=== PATIENT | male | born 1950 | race Caucasian/White ===

== ENCOUNTER 2023-06-26 13:03 | Outpatient (RCR) | payer OTHER, SELFPAY | END 2023-06-26 23:59 | disposition home or self-care (01) | LOC: RPT 13:03 | PROVIDERS: ATTENDING PHYSICIAN Family Medicine | DX: M21.371 Foot drop, right foot (principal); M25.511 Pain in right shoulder; M25.512 Pain in left shoulder; Z73.6 Limitation of activities due to disability | CPT/HCPCS: 97110; 97140; 97162; 97535 ==

== ENCOUNTER → 2023-07-24 13:11 | Outpatient (REF) | payer OTHER, SELFPAY | LOC: HWEVLT 13:11 | PROVIDERS: ATTENDING PHYSICIAN Radiology Diagnostic Radiology | DX: I83.893 Varicose veins of bilateral lower extremities with other complications (principal) | CPT/HCPCS: 93970 ==

== ENCOUNTER 2023-07-26 12:16 | Outpatient (RCR) | payer OTHER, SELFPAY | END 2023-07-26 23:59 | disposition home or self-care (01) | LOC: RPT 12:16 | PROVIDERS: ATTENDING PHYSICIAN Family Medicine | DX: M21.371 Foot drop, right foot (principal); M25.511 Pain in right shoulder; M25.512 Pain in left shoulder; Z73.6 Limitation of activities due to disability | CPT/HCPCS: 97010; 97110; 97112; 97140; 97530 ==

== ENCOUNTER 2023-08-27 14:00 | Outpatient (RCR) | payer OTHER, SELFPAY | END 2023-08-27 23:59 | disposition home or self-care (01) | LOC: RPT 14:00 | PROVIDERS: ATTENDING PHYSICIAN Family Medicine | DX: M21.371 Foot drop, right foot (principal); M25.511 Pain in right shoulder; M25.512 Pain in left shoulder; Z73.6 Limitation of activities due to disability | CPT/HCPCS: 97110; 97112; 97116; 97530; 97535 ==

== ENCOUNTER 2023-09-26 10:01 | Outpatient (RCR) | payer OTHER, SELFPAY | END 2023-09-26 23:59 | disposition home or self-care (01) | LOC: RPT 10:01 | PROVIDERS: ATTENDING PHYSICIAN Family Medicine | DX: M21.371 Foot drop, right foot (principal); M25.511 Pain in right shoulder; M25.512 Pain in left shoulder; Z73.6 Limitation of activities due to disability | CPT/HCPCS: 97010; 97110; 97112; 97140; 97530; 97535 ==

== ENCOUNTER → 2023-11-05 11:46 | Outpatient (REF) | payer OTHER, SELFPAY | LOC: RAD 11:46 | PROVIDERS: ATTENDING PHYSICIAN Family Medicine | DX: M25.511 Pain in right shoulder (principal); G89.29 Other chronic pain; M25.512 Pain in left shoulder; M54.2 Cervicalgia | CPT/HCPCS: 72040 ==

== ENCOUNTER → 2023-11-20 10:58 | Outpatient (REF) | payer OTHER, SELFPAY | LOC: RAD 10:58 | PROVIDERS: ATTENDING PHYSICIAN Family Medicine | DX: R93.89 Abnormal findings on diagnostic imaging of other specified body structures (principal) | CPT/HCPCS: 71260; Q9967 ==

== ENCOUNTER → 2024-06-17 11:14 | Outpatient (REF) | payer OTHER, SELFPAY | LOC: RAD 11:14 | PROVIDERS: ATTENDING PHYSICIAN Family Medicine | DX: Z95.0 Presence of cardiac pacemaker (principal) | CPT/HCPCS: 71046 ==

== ENCOUNTER → 2024-06-27 14:46 | Outpatient (REF) | payer OTHER, SELFPAY | LOC: RCS 14:46 | PROVIDERS: ATTENDING PHYSICIAN Nuclear Medicine Nuclear Cardiology; FAMILY PHYSICIAN Family Medicine | DX: I44.30 Unspecified atrioventricular block (principal); Z95.0 Presence of cardiac pacemaker; I35.1 Nonrheumatic aortic (valve) insufficiency | CPT/HCPCS: 93306 ==

== ENCOUNTER → 2024-07-22 13:50 | Outpatient (REF) | payer OTHER, SELFPAY | LOC: RAD 13:50 | PROVIDERS: ATTENDING PHYSICIAN Registered Nurse | DX: M25.552 Pain in left hip (principal) | CPT/HCPCS: 73502 ==

== ENCOUNTER → 2024-07-24 13:36 | Outpatient (REF) | payer OTHER, SELFPAY | LOC: MRI 13:36 | PROVIDERS: ATTENDING PHYSICIAN Nurse Practitioner Adult Health | DX: G57.91 Unspecified mononeuropathy of right lower limb (principal); R20.0 Anesthesia of skin; R26.89 Other abnormalities of gait and mobility | CPT/HCPCS: 70030; 70553; 76014; 76015; A9575 ==

== ENCOUNTER 2024-07-25 16:20 | Inpatient (IN) | payer OTHER, SELFPAY ==
[2024-07-25] VITALS (7 sets, daily range): BP systolic 110–158; BP diastolic 54–82; BMI 25.1; BMI 24.4
[2024-07-25 13:20] LABS: % Eosinophils 2.6 % (0-6); % Immature Granulocytes 0.2 % (0-0.5); % Lymphocytes 15.9 % (20.5-51.1); % Monocytes 6.3 % (1.7-9.3); Absolute Basophils 0.1 10^3/uL (0-0.2); Absolute Eosinophils 0.2 10^3/uL (0-0.7); Absolute Lymphocytes 0.9 10^3/uL (1.2-3.4); Absolute Monocytes 0.4 10^3/uL (0.1-0.6); Absolute Neutrophils 4.3 10^3/uL (1.4-6.5); Hematocrit 41.1 % (39.0-52.0); Hemoglobin 13.8 g/dL (13.0-18.0); Mean Corp Hgb Conc. 33.6 g/dL (33.0-37.0); Mean Corpuscular Hgb 32.3 pg (27.0-31.0); Mean Corpuscular Volume 96.3 fL (80.0-94.0); Mean Platelet Volume 9.4 fL (7.4-10.4); Nucleated Red Blood Cells % 0 % (-); Platelet Count 168 10^3/uL (130-400); Red Blood Cell Count 4.27 10^6/uL (4.70-6.10); Red Cell Dist. Width 12.6 % (11.5-14.5); White Blood Cell Count 5.7 10^3/uL (4.8-10.8)
[2024-07-25 14:07] LABS: ALT (SGPT) 23 U/L (0-50); AST (SGOT) 35 U/L (17-59); Albumin 4.3 g/dl (3.5-5.0); Alkaline Phosphatase 74 U/L (38-126); Blood Urea Nitrogen 23 mg/dl (9-20); Calcium 9.6 mg/dl (8.4-10.2); Carbon Dioxide 26 mmol/L (22-30); Chloride 105 mmol/L (98-107); Glucose 98 mg/dl (70-99); Potassium 4.7 mmol/L (3.5-5.1); Sodium 141 mmol/L (135-145); Total Bilirubin 0.7 mg/dl (0.2-1.3); eGFR > 60.00
--- NOTE | 2024-07-25 14:57 | EDRN ---
Diamond Balderas PA in room w/ pt at this time.
--- NOTE | 2024-07-25 15:12 | CON.NEURO ---
Consultation
Order
Date of Consultation: 07/25/24
Requesting Provider: Laura Pollard CRNP
Reason for Consult: Stroke
Neurology Consultation Note.
HPI: This is a 74-year-old RH man who was referred to [facility] on 07/25/2024 after discovery acute infarcts on brain MRI. Patient states that brain MRI was initially requested due to his daughter's Chiari I malformation. No reports
of dysarthria, diplopia, change in chronic intermittent chronic dysphagia to solids,dysphonia or imbalance.
Mr. Olmstead reports difficulty swallowing solids for the past couple of months.
The patient has had gradual in onset progressive right foot weakness at least over the last 15 years as well as progressive proximal arm weakness for at least 22 years.
He does have chronic hand numbness (all the digits) as well.
According to Ms. Olmstead the patient has had progressive cognitive decline over the last 2 years. No reports of neck pain, recent falls.
The patient was not on aspirin prior to the presentation.
ER VS: 137/69, 62, afebrile pain
PDMP: No recently prescribed medication
Labs: Normal glucose�WBCs, platelets
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
PMH: IGT, DLP, moderate R ICA stenosis (2017) hypothyroidism, vitamin D deficiency, vitiligo
PSH: PPM, right cataract surgery, tonsillectomy,
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
FH: Mother at 69 from ovarian cancer, father at 64 from ruptured brain aneurysm, son at 47 head parkinsonism
All: Penicillin
ROS: Constitutional: Negative. Negative for chills, fever
HENT: Positive for hearing impairment
Eyes: Negative. Negative for photophobia, pain and visual disturbance.
Respiratory: Negative for cough, choking and shortness of breath.
Cardiovascular: Negative for chest pain, palpitations and leg swelling.
Gastrointestinal: Intermittent dysphagia to solids
Endocrine: Negative. Negative for cold intolerance.
Musculoskeletal: Positive for chronic limited range of motion's and bilateral shoulders
Skin: Negative for rash.
Allergic/Immunologic: Negative. Negative for immunocompromised state.
Neurological: Positive for chronic right foot weakness, imbalance, bilateral arm weakness, hand numbness (all digits)
Psychiatric/Behavioral: Positive for cognitive changes
General: Well developed. In no acute distress.
Cardio: Regular rate and rhythm without murmur. Extremities are without cyanosis or edema.
Neuro:
Mental Status: Alert, oriented to person, place, and date. Mildly paired attention and delayed recall. Follows complex requests across the midline. Comprehension, naming, and repetition intact.
Cranial Nerves: Pupils are equally round and reactive to light. EOMs full. Visual smith full to confrontation. No ptosis. No nystagmus. V1-V3 intact to light touch and pinprick bilaterally, symmetric. Face symmetric. Impaired hearing AU.
The palate elevated well. SCMs and traps 5/5. Tongue midline. No dysarthria. Mild dysphonia
Motor: BL APB, supraspinatus, infraspinatus, trapezius, deltoids, biceps atrophy. Strength 5/5 throughout except for bilateral shoulder adduction�abduction, elbow flexion and extension 2�3 out of 5 right dorsiflexion�0 out of 5, left hip scar
flexion�4 out of 5 no clonus.
Reflexes: 0 throughout the upper extremities and knees. 0/2 in AJs. Plantar responses flexor bilaterally.
Sensory: Absent vibration and proprioception at the toes. Vibration at the ankles
Coordination: No dysmetria or tremor.
Gait: deferred
Bilateral pes cavus and hammertoes
Assessment and Plan:
I. 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
II. 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
III. Chronic encephalopathy
IV. Chiari I malformation
-Fall and aspiration precautions
-Dysphagia evaluation
-Start DAPT for 3 weeks followed by monotherapy with aspirin 81 mg once a day
-Please check lipid panel, hemoglobin A1c
-TTE
-CTA head and neck
-PT
-OP NCS/EMG, CMT panel
-Polyneuropathy blood work
-OP neuropsychological evaluation
-May consider amyloid brain PET scan
I personally reviewed all radiology and labs along with past medical records pertinent to current medical problems. Total time spent in patient care is 60 minutes.
Thank you for allowing us to participate in the care of this patient. We will continue to follow. Please do not hesitate to contact us with any questions or concerns.
Subjective/Objective
Subjective Data
Date of Service: July 25, 2024
Objective Data
Vital Signs
Temp Pulse Resp BP Pulse Ox
36.7 C 62 16 137/69 98
07/25/24 13:00 07/25/24 13:00 07/25/24 13:00 07/25/24 13:00 07/25/24 13:00
Lab Results
07/25/24 13:09
07/25/24 13:09
Sodium 141 mmol/L (135-145) 07/25/24 13:09
Potassium 4.7 mmol/L (3.5-5.1) 07/25/24 13:09
BUN 23 mg/dl (9-20) H 07/25/24 13:09
Glucose 98 mg/dl (70-99) 07/25/24 13:09
Calcium 9.6 mg/dl (8.4-10.2) 07/25/24 13:09
Patient Allergies
Penicillins Allergy (Verified 07/25/24 13:04)
Unknown
Medications
-
Home Medications
�Medication �Instructions �Recorded
Immune C 2 tab PO DAILY 05/22/22
aspirin 81 mg capsule 81 mg PO DAILY 05/22/22
levothyroxine 175 mcg tablet 175 mcg PO MOTUWETHFRSA 05/22/22
meloxicam 15 mg tablet 15 mg PO QPM 05/22/22
Vital Signs and Labs
-
Vital Signs and Labs:
Vital Signs
Temp Pulse Resp BP Pulse Ox
36.7 C 59 23 139/74 97
07/25/24 13:00 07/25/24 16:15 07/25/24 16:15 07/25/24 16:00 07/25/24 15:45
Lab Results
07/25/24 13:09
07/25/24 13:09
PT 14.8 Sec (11.4-14.6) H 07/25/24 15:27
INR 1.12 07/25/24 15:27
APTT 30.9 Sec (23.4-35.0) 07/25/24 15:27
Sodium 141 mmol/L (135-145) 07/25/24 13:09
Potassium 4.7 mmol/L (3.5-5.1) 07/25/24 13:09
BUN 23 mg/dl (9-20) H 07/25/24 13:09
Glucose 98 mg/dl (70-99) 07/25/24 13:09
Calcium 9.6 mg/dl (8.4-10.2) 07/25/24 13:09
LDL Cholesterol, Calc Cancelled 07/25/24 15:04
Medications
-
Medications:
Generic Name Dose Route Start Last Admin
Trade Name Freq PRN Reason Stop Dose Admin
Acetaminophen 650 mg 07/25/24 17:02
Acetaminophen 650 Mg Rectal Suppository RECTAL 08/22/24 17:01
Q4HPRN PRN
MCDERMOTT, mild pain, or temp >100.4F
Acetaminophen 650 mg 07/25/24 17:02
Acetaminophen 325 Mg Tablet PO 08/22/24 17:01
Q4HPRN PRN
MCDERMOTT, mild pain, or temp >100.4F
Aspirin 81 mg 07/26/24 08:00
Aspirin 81 Mg Chewable Tablet PO 08/23/24 07:59
DAILY ZINA
Atorvastatin Calcium 40 mg 07/25/24 18:00
Atorvastatin (Lipitor) 40 Mg Tablet PO 08/22/24 17:59
QPM ZINA
Clopidogrel Bisulfate 75 mg 07/26/24 08:00
Clopidogrel 75 Mg Tablet PO 08/23/24 07:59
DAILY ZINA
Enoxaparin Sodium 40 mg 07/25/24 18:00
Enoxaparin Sodium 40 Mg/0.4 Ml Syringe SC 08/22/24 17:59
QPM ZINA
Levothyroxine Sodium 175 mcg 07/26/24 06:00
Levothyroxine 175 Mcg Tablet PO 08/23/24 05:59
MoTuWeThFrSa@0600 ZINA
Meloxicam 15 mg 07/25/24 22:00
Meloxicam (Mobic) 15 Mg Tablet PO 08/22/24 21:59
HS ZINA
Sodium Chloride 0 flush 07/25/24 18:00
Sodium Chloride 0.9% (Flush) Syringe IV 08/22/24 17:59
PER PROTOCOL ZINA
Home Medications
-
Home Medications
Immune C 1 tab PO DAILY 05/22/22
levothyroxine 175 mcg tablet (Synthroid) 175 mcg PO MOTUWETHFRSA 05/22/22
meloxicam 15 mg tablet 15 mg PO HS 05/22/22
Quietum Plus 1 tab PO DAILY 07/25/24
--- NOTE | 2024-07-25 15:20 | EDRN ---
[facility] pacemanker interrogated at this time and report came and given to Diamond HEALY at this time.
--- NOTE | 2024-07-25 15:28 | ED.GENMED ---
History of Present Illness
General
Chief Complaint: Gait Dysfunction
Source: patient and spouse
Time Seen by Provider: 07/25/24 14:51
History of Present Illness
History of Present Illness:
74-year-old male with past medical history of hypothyroidism status post pacemaker placed presenting to the emergency department from home after he had an outpatient MRI yesterday which showed acute CVA within the medulla and the right cerebellar
hemisphere. Patient got the MRI after patient's daughter was diagnosed with a Chiari I malformation, patient has dealt with chronic numbness to bilateral hands and feet over the last 4 years and daughter thought that this could be related to a
Chiari I malformation which is why they proceeded with the MRI as an outpatient although notes that patient has had gait imbalance that has been gradually worsening over the last few years but acutely worse over the last few weeks. also
notes that patient seems to have had word finding difficulty that seems to be more pronounced over the last week or so patient believes his numbness/tingling to his hands and feet are related to the COVID-vaccine he received 4 years ago. He is
otherwise denying any headaches, visual changes, new weakness or numbness, chest pain or shortness of breath, abdominal pain or any other concerns. Patient states that he was taken off his daily aspirin 6 months ago by cardiology.
Past History
Past History
ED Past Medical History: Arrthythmia and Hypothyroidism
ED Past Surgical History: Cardiac and Tonsilectomy
Social History
Tobacco: Non-smoker
Alcohol: None
Drug: None
Personal:
Living: with family
Review of Systems
Review of Systems
All Other Systems: ROS reviewed and negative except as documented in HPI and ROS
Phy Exam
Physical Exam
Physical Exam:
GENERAL: Alert , in no apparent distress
HEAD: NCAT
EYE: pupils equal and reactive, pupils 4mm b/l
NECK: Supple
ENT: o/p clr, mmm. tongue midline, no deviations/fasciculations
CARDIAC: Bradycardic rate and rhythm
LUNGS: Clear breath sounds bilaterally, no acute respiratory distress, no wheezes/rales/rhonchi
NEUROLOGICAL: Alert and oriented, moves all extremities but patient does report some subjective decrease sensation over the right anterior lower extremity compared to the left
SKIN: Warm and dry, skin intact.
MUSCULOSKELETAL: No edema, well perfused.
PSYCH: Normal and appropriate interaction.
Scores
NIH Stroke Score
Level of Consciousness: 0 - Alert
LOC Questions: 0-Answers both correctly
LOC Commands: 0-Performs both correctly
Best Horizontal Gaze: 0-Normal
Visual Arroyo: 0=Normal, no visual loss
Facial Palsy: 0=Normal, symmetrical
Motor - Right Arm: 0=No drift 10 seconds
Motor - Left Arm: 0=No drift 10 seconds
Motor - Right Le-No drift 5 seconds
Motor - Left Le-No drift 5 seconds
Limb Ataxia: 0-Absent
Sensation: 1-Mild loss
Best Language: 0-No aphasia
Dysarthria: 0-Normal
Extinction and Inattention: 0-No abnormality
Total Score:: 1
Thrombolytic Contraindication
Inclusion and Exclusion criteria reviewed: Yes
Reasons for NON-Tx with Thrombolytics ABSOLUTE Exclusions: Greater than 4.5 hrs from onset of sxs
Heart Failure Risk
Heart Failure Risk Score: Not Applicable
Heart Score for Chest Pain Patients
STEMI patient?: Not applicable
Withdrawal Assessment of Alcohol
Withdrawal Assessment Completed?: Not applicable
Course
Orders/Labs/Results
Orders:
Orders
07/25/24 13:09
Cardiovascular Evaluation Urgent
Comment: ADD ON
Complete Blood Count/With Diff Urgent
Comprehensive Metabolic Panel Urgent
Glycohemoglobin (HgbA1c) Urgent
07/25/24 15:04
Interrogate Pacemaker- Treatment ONCE
07/25/24 15:05
Electrocardiogram (*1) Urgent
Reason for Study: TIA/Stroke
EKG- Treatment ONCE
07/25/24 15:08
Aspirin 325 mg PO NOW STA
Clopidogrel Bisulfate [Plavix] 75 mg PO NOW STA
07/25/24 15:27
PTT Urgent
Prothrombin Time Urgent
07/25/24 15:49
Admit/Transfer Patient As Directed
Co-Sign Provider:
Level of Care: Inpatient admission
Assign to:: Telemetry
Physician / Group: trejo
Diagnosis: CVA
Reason for Telemetry: CVA/TIA
Date to Stop Telemetry: 07/28/24
Time to Stop Telemetry: 11:00
Reason for Hospitalization: cva
Expected length of stay greater than two midnights?: Yes
ELOS- Estimated Length of Stay in days: 3
I certify the patient meets the requirements for IP care: Yes
PRN Pain Medication Management As Directed
May give lesser potent ordered pain med per pt: Yes
preference::
Protocol:: Medication orders for pain may be administered in a
manner that supports deferring to patient preference
when the pt is:
- Requesting an ordered lesser potent pain medication.
Least to most potent pain medications are defined
as: acetaminophen < NSAID < tramadol < opioids
(morphine, oxycodone, hydromorphone).
- Requesting a lesser dose of the same medication IF
ORDERED.
- Requesting a less intrusive route of administration
if both routes are prescribed by the provider (PO <
IV).
07/25/24 15:50
Code Status As Directed
Resuscitation Status: Do not resuscitate
Reached after discussion with pt or family/Healthcare POA: Yes
DNR Bracelet Application ONCE
07/25/24 17:02
Acetaminophen [Tylenol/Feverall] 650 mg RECTAL Q4HPRN PRN
Acetaminophen [Tylenol] 650 mg PO Q4HPRN PRN
07/25/24 17:02
Echo 2D MMode Color/Doppler Routine
Reason for Study: weakness
Case Management Consult ONCE
Case Management Consult: Discharge Planning
Comment: stroke/tia
DIETARY IP CONSULT Routine
Reason for Consult: stroke/TIA
NEUROLOGY CONSULT Urgent
Consulting Provider: Phoebe Shahid
Was physician already notified: Yes
Pitch Worker Urgent
Activity As Directed
Activity Level: As Tolerated
NIH Stroke Scale As Directed
Directions: Per protocol
Comment: every shift and with any change in condition or mental status
Neurological Checks As Directed
Frequency: q4h
Additional Instructions:: q4h x 24h upon admission to the floor, then qshift & with any change in condition
and mental status
Patient Education As Directed
Type: Stroke education packet
Comment: provide to patient and family
Swallow Screening CVA/TIA ONLY As Directed
Comment: NPO until swallowing screening completed
If patient FAILS swallow screening:: NPO, Speech Therapy consult, Aspiration Precautions
If patient PASSES swallow screening, diet:: Cholesterol Lowering
Above diet order entered?: Yes- passed screening
Vital Signs As Directed
Frequency: Per unit guidelines
Ot Eval And Treat Routine
Pt Eval And Treat Routine
Activity Level: As Tolerated
Speech Therapy Eval & Treat Routine
DX Deep Vein Thrombosis Video Routine
07/25/24 18:00
Atorvastatin [Lipitor] 40 mg PO QPM
Enoxaparin Sodium [Lovenox] 40 mg SC QPM
07/25/24 22:00
Meloxicam [Mobic] 15 mg PO HS
07/26/24 06:00
Cardiovascular Evaluation IN AM
Levothyroxine [Synthroid] 175 mcg PO MoTuWeThFrSa@0600
07/26/24 08:00
Aspirin Chewable [Low Strength Aspirin] 81 mg PO DAILY
Clopidogrel Bisulfate [Plavix] 75 mg PO DAILY
07/28/24 11:00
DC Protocol for Telemetry ONCE
Abnormal Lab Results
07/25/24 07/25/24
13:09 15:27
RBC 4.27 L 10^6/uL
(4.70-6.10)
MCV 96.3 H fL
(80.0-94.0)
MCH 32.3 H pg
(27.0-31.0)
Absolute Lymphs (auto) 0.9 L 10^3/uL
(1.2-3.4)
Lymphocytes % 15.9 L %
(20.5-51.1)
PT 14.8 H Sec
(11.4-14.6)
BUN 23 H mg/dl
(9-20)
07/25/24 13:09
07/25/24 13:09
Vital Signs
Initial and Last Documented VS:
Initial Vital Signs
Temp Pulse Resp BP Pulse Ox
98.0 F 62 16 137/69 98
07/25/24 13:00 07/25/24 13:00 07/25/24 13:00 07/25/24 13:00 07/25/24 13:00
Last Documented Vital Signs
Temp Pulse Resp BP Pulse Ox
98.3 F 62 18 158/82 98
07/25/24 17:15 07/25/24 17:15 07/25/24 17:15 07/25/24 17:15 07/25/24 17:15
MDM/Problems Addressed
Differential Diagnosis Includes:
Acute CVA, cardiac arrhythmia, uncontrolled hypertension, carotid artery stenosis/plaque, hypercholesterolemia, electrolyte derangement
MDM/Problems Addressed:
74-year-old male presenting the ER for evaluation at the request of primary care provider who had ordered an MRI done as an outpatient which returned showing acute CVA within the medulla in the right cerebellar hemisphere. Patient is reportedly in
his usual state of health presently and denies any new symptoms different than his baseline. Patient does have an NIH score of 1 however given his symptoms are of unknown duration he is not a candidate for TNK nor thrombolysis, no stroke alert was
called. Will notify neurology to consult as well as hospitalist team to admit. Aspirin Plavix ordered. Patient otherwise hemodynamically stable.
*Pulse Oximetry
Patient hypoxic: no
*Critical Care Note
Total Time (30-74mins, 75-104mins- exclusive of procedures): Not Applicable
Data Reviewed
Review of Other/Old Records Reveals: Labs, Records and Radiology Studies
Source: patient and records
Patient Management
Discussion with other providers: Hospitalist and Waiter/Waitress Economy Class
Escalation/DeEscalation of care consider admission/obs:
Case discussed with neurology who agrees with plan for aspirin and Plavix. Admit to hospitalist service and they will see in consult. Hospitalist team accepts for continued evaluation and treatment. I also spoke to Steven from [facility]
about patient's pacemaker report and there is no evidence for atrial fibrillation or other arrhythmia recently.
ED Attending Note
-
Portions of this chart may have been created with voice recognition software.� Occasional wrong word or��sound alike� substitutions may have occurred due to the inherent limitations of voice recognition software.
Discharge Plan
Departure
Patient Disposition: Admit
Date of Disposition: 07/25/24
Time of Disposition: 15:28
Presentation/result/management discussed w/ accepting MD/DO: Hospitalist
Discharge Problem:
Acute cerebrovascular accident (CVA)
Interventions
Interventions:
*Risk Screen - Suicide Last Done: 07/25/24 17:27
*General Assessment Last Done: 07/25/24 15:03
*Neglect/Abuse Screening Last Done: 07/25/24 13:00
*ED- Fall Risk Assessment Last Done: 07/25/24 15:03
*ED COVID-19 Vaccine History Last Done: 07/25/24 17:27
*Nursing Disposition Last Done: 07/25/24 16:50
ED- Neurological Assessment Last Done: 07/25/24 15:13
ED-Musculoskeletal Assessment Last Done: 07/25/24 15:16
ED Swallowing Screen Last Done: 07/25/24 15:25
Discharge Date and Time
Discharge Date/Time: 07/25/24 16:50
--- NOTE | 2024-07-25 15:30 | HPS.HSE ---
Family Physician
-
Family Physician:
Chief Complaint
-
coughing with eating food
numbness
History of Present Illness
74-year-old with past medical history for hypothyroidism, pacemaker presented to us withfter he had an outpatient MRI yesterday which showed acute CVA within the medulla and the right cerebellar hemisphere. Patient had MRI after the patient
daughter was diagnosed with Chiari I malformation. Patient was also noted to have bilateral lower extremities numbness and hand numbness. Patient was having trouble swallowing. He will cough every time he eats food. He had the symptoms for a
year now. Patient has chronic balance issues. Patient uses cane with a walker. also notes that patient seems to have had word finding difficulty that seems to be more pronounced over the last week. Patient denied any headache, dizzy,
syncope. Patient denied any fever, chills, chest pain, short of breath. Patient denied any abdominal pain, nausea, vomiting or diarrhea. Patient denied dysuria materia.
Patient received a dose of aspirin Plavix in ER. Admitting for further management
Medical History
Past Medical History
Past Medical History: Reports Other
Additional Past Medical History:
Bilateral carotid artery disease
Hypothyroidism
AV heart block
Aortic wall insufficiency
Hyperlipidemia
Right foot drop
Cardiac pacemaker
Past Surgical History: Reports Other
Additional Past Surgical History:
Pacemaker placement
Right cataract surgery
Social History
Tobacco: Non-smoker
Alcohol: Occasional
Drug: None
Personal:
Living: With Family
Family History
Family History: Not pertinent
Allergies / Home Medications
Allergies reflects when Allergies were last updated in [facility].
Home Medications with original date entered in [facility]
Allergy/Medication List:
Allergies
Allergy/AdvReac Type Severity Reaction Status Date / Time
Penicillins Allergy Unknown Verified 07/25/24 13:04
Home Medications
Immune C 1 tab PO DAILY 05/22/22
levothyroxine 175 mcg tablet (Synthroid) 175 mcg PO MOTUWETHFRSA 05/22/22
meloxicam 15 mg tablet 15 mg PO HS 05/22/22
Quietum Plus 1 tab PO DAILY 07/25/24
Review of Systems
-
Constitutional: Reports No Symptoms
EENT: Reports No Symptoms
Respiratory: Reports No Symptoms
Cardiac: Reports No Symptoms
Abdomen/GI: Reports No Symptoms
: Reports No Symptoms
Musculoskeletal: Reports No Symptoms
Skin: Reports No Symptoms
Neurological: Reports Weakness, Numbness and Other (Difficulty swallowing, finding words)
Endocrine: Reports No Symptoms
Hematologic/Lymphatic: Reports No Symptoms
Psych: Reports No Symptoms
Physical Exam
Vital Signs
Vital Signs
Temp Pulse Resp BP Pulse Ox
98.0 F 50 13 137/73 98
07/25/24 13:00 07/25/24 15:15 07/25/24 15:15 07/25/24 15:15 07/25/24 15:15
Physical Exam
General: Well Developed, Well Nourished and No Apparent Distress
HEENT: NormoCephalic, Moist mucous membranes and Atraumatic
Respiratory: Clear
Cardiac: S1/S2 and Regular Rhythm; No Murmur or Rub
GI: Soft, Non Tender, Non Distended and Normal Bowel Sounds; No Organomegaly
Rectal: Deferred by Provider
Musculoskeletal: No Clubbing, No Cyanosis and No Edema
Skin: No Rash
Neuro: AO x 3 and Nonfocal/grossly intact
Psych: Calm
Laboratory Results
-
07/25/24 13:09
07/25/24 13:09
Laboratory Results
Total Bilirubin 0.7 mg/dl (0.2-1.3) 07/25/24 13:09
AST 35 U/L (17-59) 07/25/24 13:09
ALT 23 U/L (0-50) 07/25/24 13:09
Alkaline Phosphatase 74 U/L (38-126) 07/25/24 13:09
Data Reviewed
-
Diagnostic Radiology: Report Reviewed by me
Lab Data: Labs Reviewed by me
Impression/Plan
-
#CVA
-Aspirin and Plavix continued
-Neurology consulted
-PT/OT consulted
-obtain ECHO
-MRI with impression of MODERATE DIFFUSE CEREBRAL and CEREBELLAR VOLUME LOSS which appears advanced for the patient's age suggesting a neurodegenerative disease.
2. Small foci of restricted diffusion in the MEDULLA and RIGHT CEREBELLAR HEMISPHERE suggesting SMALL ACUTE ISCHEMIC INFARCTS.
3. Mild white matter leukoaraiosis in the frontal and parietal lobes.
4. Mild Chiari I malformation.
5. Multilevel severe facet joint arthrosis in the cervical spine combined with multilevel disc herniations causing spinal cord compression and central canal stenosis.
#Hypothyroidism
-Levothyroxine continued
#DVT prophylaxis
-Lovenox
# CODE STATUS DNR
-
--- NOTE | 2024-07-25 15:40 | EDRN ---
Neurologist in room w/pt at this time.
[2024-07-25] MEDS: PLAVIX 75 MG PO (15:51)
[2024-07-25] MEDS: ASPIRIN 325 MG PO (15:51)
[2024-07-25 15:56] LABS: INR 1.12; PT 14.8 Sec (11.4-14.6)
[2024-07-25 15:57] LABS: APTT 30.9 Sec (23.4-35.0)
[2024-07-25 15:59] LABS: HDL Cholesterol 52 mg/dl; LDL Cholesterol, Calculated 100 mg/dl; Total Cholesterol 180 mg/dl (50-199); Triglyceride 141 mg/dl (10-149); Very Low Density Lipoprotein 28 mg/dl (0-30)
--- NOTE | 2024-07-25 16:09 | W.PN.UPDATE ---
Update Note
Progress Note Update
This serves as an addendum to H&P dictated by Atul Sanchez on 07/25/2024.
I saw and examined the patient.
The FRONT COUNTER ATTENDANT or PA's note was reviewed and I agree with the note.
Comment:
Patient 74 years old male history of hypothyroidism, peripheral vascular disease, AV block with pacemaker, dyslipidemia, presented with abnormal MRI consistent with stroke. Daughter recently diagnosed with Chiari malformation which prompted further
testing. at bedside. Patient has some chronic intermittent paresthesias and dysphagia. No diplopia. No cp/sob. No fever or chills.
Physical exam:
General: No Apparent Distress
HEENT: Normocephalic, Atraumatic and Moist Mucous Membranes
Respiratory: Clear to Auscultation; Negative Wheezes, Rales or Rhonchi
Cardiac: Regular Rhythm and S1/S2
GI: Soft, Nontender and Nondistended
Musculoskeletal: No Clubbing, No Cyanosis and No Edema
Neuro: Awake, Alert and Oriented, generalized weakness, RUE and RLE distal weakness, decreased vibration and proprioception in same areas. Decreased reflexes.
Psych: Calm, inattention, cognitive deficits
A/P:
Acute embolic CVA R PICA/Chiari/possible CMT/TME--> interrogation PPM no arrhythmia, antiplatelets, statins, pt ot sp, neurology consult.
--- NOTE | 2024-07-25 16:19 | EDRN ---
Dr. Lang in room w/pt at this time.
--- NOTE | 2024-07-25 16:52 | EDRN ---
Attempting to call RN to share NIHSS.
--- NOTE | 2024-07-25 16:54 | EDRN ---
Reviewed NIHSS and swallow test w/ pt's nurse Kalie SINGLETON who will be caring for pt.
[2024-07-25] MEDS: LOVENOX 40 MG SC (17:50)
[2024-07-25] MEDS: LIPITOR 40 MG PO (17:54)
--- NOTE | 2024-07-25 18:32 | PTCARENOTE ---
Received pt into room 409-01. resource recovery engineer assist x3. AAOx3. VSS. NIH 0. B/l heel foams applied. Able to answer all admission questions. at bedside. Pt makes no complaints at this time, call yoon within reach.
[2024-07-25 19:01] LABS: Creatine Phosphokinase 136 U/L (55-170)
[2024-07-25 20:08] LABS: Vitamin B12 278 pg/ml (239-931)
[2024-07-25] MEDS: MOBIC 15 MG PO (20:23)
[2024-07-26] VITALS (7 sets, daily range): BP systolic 114–140; BP diastolic 56–85; PULSE 60; O2SAT 92
[2024-07-26] MEDS: SYNTHROID 175 MCG PO (04:57)
--- NOTE | 2024-07-26 07:26 | W.PN.HOSP.TC ---
Today's Communication/Plan
-
Antiplatelets and statins PT OT SP and CTA of the head and neck
Assessment / Plan
Assessment / Plan
Physical exam:
General: No Apparent Distress
HEENT: Normocephalic, Atraumatic and Moist Mucous Membranes
Respiratory: Clear to Auscultation; Negative Wheezes, Rales or Rhonchi
Cardiac: Regular Rhythm and S1/S2
GI: Soft, Nontender and Nondistended
Musculoskeletal: No Clubbing, No Cyanosis and No Edema
Neuro: Awake, Alert and Oriented, generalized weakness, RUE and RLE distal weakness, decreased vibration and proprioception in same areas. Decreased reflexes.
Psych: Calm, inattention, cognitive deficits
A/P:
Acute embolic CVA R PICA:
-Aspirin and Plavix and statin
-Neurology consult appreciated
-interrogation PPM no arrhythmia
-PT/OT consulted
-Hemoglobin A1c 5.4
-LDL 89
-Reviewed echocardiogram
-Reviewed MRI of the brain
-Discussed with at bedside
#Hypothyroidism
-Levothyroxine continued
# Libby malformation
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
#Chronic encephalopathy
#Vitamin B12 insufficiency. Vitamin B12 278. Start supplementation
#DVT prophylaxis
-Lovenox
# CODE STATUS DNR
Anticipated Discharge: 24 - 48 hours
Subjective/Interval History
-
Date of Service: July 26, 2024
Patient feels better today. No chest pain or shortness of breath
Objective Data
-
Vital Signs:
Vital Signs
Temp Pulse Resp BP Pulse Ox
97 F 57 14 129/61 97
07/26/24 03:54 07/26/24 03:54 07/26/24 03:54 07/26/24 03:54 03/29/25 03:54
I&O
07/25/24 07/26/24 07/27/24
06:59 06:59 06:59
Intake Total 100 / 100
Balance 100 / 100
[2024-07-26 07:29] LABS: HDL Cholesterol 49 mg/dl; LDL Cholesterol, Calculated 89 mg/dl; Total Cholesterol 159 mg/dl (50-199); Triglyceride 107 mg/dl (10-149); Very Low Density Lipoprotein 21 mg/dl (0-30)
[2024-07-26] MEDS: PLAVIX 75 MG PO (08:42)
[2024-07-26] MEDS: LOW STRENGTH ASPIRIN 81 MG PO (08:42)
[2024-07-26 09:48] LABS: Glycohemoglobin (HgbA1c) 5.4 % (4.0-5.6)
--- NOTE | 2024-07-26 10:40 | W.PN.NEURO.1 ---
Today's Communication / Plan
-
.
Subjective/Objective
Subjective Data
Date of Service: July 26, 2024
Neurology follow-up note
No acute events overnight. Mr. Olmstead reports no complaints.
The patient has been afebrile and normotensive.
Hemoglobin A1c�5.4, LDL�89, vitamin B12�278, normal folate.
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
PMH: IGT, DLP, moderate R ICA stenosis (2017) hypothyroidism, vitamin D deficiency, vitiligo
PSH: PPM, right cataract surgery, tonsillectomy,
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
FH: Mother at 69 from ovarian cancer, father at 64 from ruptured brain aneurysm, son at 47 head parkinsonism
All: Penicillin
ROS: Constitutional: Negative. Negative for chills, fever
HENT: Positive for hearing impairment
Eyes: Negative. Negative for photophobia, pain and visual disturbance.
Respiratory: Negative for cough, choking and shortness of breath.
Cardiovascular: Negative for chest pain, palpitations and leg swelling.
Gastrointestinal: Intermittent dysphagia to solids
Endocrine: Negative. Negative for cold intolerance.
Musculoskeletal: Positive for chronic limited range of motion's and bilateral shoulders
Skin: Negative for rash.
Allergic/Immunologic: Negative. Negative for immunocompromised state.
Neurological: Positive for chronic right foot weakness, imbalance, bilateral arm weakness, hand numbness (all digits)
Psychiatric/Behavioral: Positive for cognitive changes
General: Well developed. In no acute distress.
Cardio: Regular rate and rhythm without murmur. Extremities are without cyanosis or edema.
Neuro:
Mental Status: Alert, oriented to person, place, and date. Mildly paired attention and delayed recall. Follows complex requests across the midline. Comprehension, naming, and repetition intact.
Cranial Nerves: Pupils are equally round and reactive to light. EOMs full. Visual smith full to confrontation. No ptosis. No nystagmus. V1-V3 intact to light touch and pinprick bilaterally, symmetric. Face symmetric. Impaired hearing AU.
The palate elevated well. SCMs and traps 5/5. Tongue midline. No dysarthria. Mild dysphonia
Motor: BL APB, supraspinatus, infraspinatus, trapezius, deltoids, biceps atrophy. Strength 5/5 throughout except for bilateral shoulder adduction�abduction, elbow flexion and extension 2�3 out of 5 right dorsiflexion�0 out of 5, left hip scar
flexion�4 out of 5 no clonus.
Reflexes: 0 throughout the upper extremities and knees. 0/2 in AJs. Plantar responses flexor bilaterally.
Sensory: Absent vibration and proprioception at the toes. Vibration at the ankles
Coordination: No dysmetria or tremor.
Gait: deferred
Bilateral pes cavus and hammertoes
Assessment and Plan:
I. 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
II. 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
III. Chronic encephalopathy
IV. Chiari I malformation
V. Vitamin B12 insufficiency
-Fall and aspiration precautions
-Dysphagia evaluation
-Continue DAPT for 3 weeks
-TTE
-Please follow-up CTA head and neck
-PT
-Start cyanocobalamin 1000 mcg once a day
-OP NCS/EMG, CMT panel
-OP neuropsychological evaluation
I personally reviewed all radiology and labs along with past medical records pertinent to current medical problems. Total time spent in patient care is 35 minutes.
Thank you for allowing us to participate in the care of this patient. We will continue to follow. Please do not hesitate to contact us with any questions or concerns.
Objective Data
Vital Signs
Temp Pulse Resp BP Pulse Ox
36.6 C 51 18 140/64 99
07/26/24 08:12 07/26/24 08:12 07/26/24 08:12 07/26/24 08:12 07/26/24 08:12
Lab Results
07/25/24 13:09
07/25/24 13:09
PT 14.8 Sec (11.4-14.6) H 07/25/24 15:27
INR 1.12 07/25/24 15:27
APTT 30.9 Sec (23.4-35.0) 07/25/24 15:27
Sodium 141 mmol/L (135-145) 07/25/24 13:09
Potassium 4.7 mmol/L (3.5-5.1) 07/25/24 13:09
BUN 23 mg/dl (9-20) H 07/25/24 13:09
Glucose 98 mg/dl (70-99) 07/25/24 13:09
Calcium 9.6 mg/dl (8.4-10.2) 07/25/24 13:09
LDL Cholesterol, Calc 89 mg/dl 07/26/24 06:32
Vitamin B12 278 pg/ml (239-931) 07/25/24 18:07
Patient Allergies
Penicillins Allergy (Verified 07/25/24 13:04)
Unknown
Vital Signs and Labs
-
Vital Signs and Labs:
Vital Signs
Temp Pulse Resp BP Pulse Ox
36.7 C 55 18 122/58 99
07/26/24 11:36 07/26/24 11:36 07/26/24 11:36 07/26/24 11:36 07/26/24 11:36
Lab Results
07/25/24 13:09
07/25/24 13:09
PT 14.8 Sec (11.4-14.6) H 07/25/24 15:27
INR 1.12 07/25/24 15:27
APTT 30.9 Sec (23.4-35.0) 07/25/24 15:27
Sodium 141 mmol/L (135-145) 07/25/24 13:09
Potassium 4.7 mmol/L (3.5-5.1) 07/25/24 13:09
BUN 23 mg/dl (9-20) H 07/25/24 13:09
Glucose 98 mg/dl (70-99) 07/25/24 13:09
Calcium 9.6 mg/dl (8.4-10.2) 07/25/24 13:09
LDL Cholesterol, Calc 89 mg/dl 07/26/24 06:32
Vitamin B12 278 pg/ml (239-931) 07/25/24 18:07
Medications
-
Medications:
Generic Name Dose Route Start Last Admin
Trade Name Freq PRN Reason Stop Dose Admin
Acetaminophen 650 mg 07/25/24 17:02
Acetaminophen 650 Mg Rectal Suppository RECTAL 08/22/24 17:01
Q4HPRN PRN
MCDERMOTT, mild pain, or temp >100.4F
Acetaminophen 650 mg 07/25/24 17:02
Acetaminophen 325 Mg Tablet PO 08/22/24 17:01
Q4HPRN PRN
MCDERMOTT, mild pain, or temp >100.4F
Aspirin 81 mg 07/26/24 08:00 07/26/24 08:42
Aspirin 81 Mg Chewable Tablet PO 08/23/24 07:59 81 mg
DAILY ZINA Administration
Atorvastatin Calcium 40 mg 07/25/24 18:00 07/25/24 17:54
Atorvastatin (Lipitor) 40 Mg Tablet PO 08/22/24 17:59 40 mg
QPM ZINA Administration
Clopidogrel Bisulfate 75 mg 07/26/24 08:00 07/26/24 08:42
Clopidogrel 75 Mg Tablet PO 08/23/24 07:59 75 mg
DAILY ZINA Administration
Enoxaparin Sodium 40 mg 07/25/24 18:00 07/25/24 17:50
Enoxaparin Sodium 40 Mg/0.4 Ml Syringe SC 08/22/24 17:59 40 mg
QPM ZINA Administration
Levothyroxine Sodium 175 mcg 07/26/24 06:00 07/26/24 04:57
Levothyroxine 175 Mcg Tablet PO 08/23/24 05:59 175 mcg
MoTuWeThFrSa@0600 ZINA Administration
Meloxicam 15 mg 07/25/24 22:00 07/25/24 20:23
Meloxicam (Mobic) 15 Mg Tablet PO 08/22/24 21:59 15 mg
HS ZINA Administration
Sodium Chloride 0 flush 07/25/24 18:00
Sodium Chloride 0.9% (Flush) Syringe IV 08/22/24 17:59
PER PROTOCOL ZINA
Home Medications
-
Home Medications
Immune C 1 tab PO DAILY 05/22/22
levothyroxine 175 mcg tablet (Synthroid) 175 mcg PO MOTUWETHFRSA 05/22/22
meloxicam 15 mg tablet 15 mg PO HS 05/22/22
Quietum Plus 1 tab PO DAILY 07/25/24
[2024-07-26] MEDS: VITAMIN B-12 1000 MCG PO (12:10)
--- NOTE | 2024-07-26 15:45 | CM ---
Patient seen bedside w/ spouse and daughter. Initial assessment completed. Admitted for coughing while eating food and numbness.
Patient reports that he resides w/ spouse in a 2STH- 3 steps to enter the home. Patient ambulates w/ a cane, has additional tub grab bar in the home. Independent w/ ADLs. Denies SNF/HC hx. OP therapy at in the past. Denies any current OP or home
services at this time.
Address, point of contact and insurance verified
PCP: Camilo Nunez
Pharmacy: [facility]
Patient requested for his daughter, Elisha, to be added as an additional contact. Michelle/admissions contacted to update.
Therapy assessed patient and is determining HH vs OP therapy
Plan: Home w/ HH vs OP therapy
--- NOTE | 2024-07-26 17:14 | PTOTSP ---
ST Acute Care Evaluation
Pt currently presents with an oral phase of swallowing that is WFL but clinical signs of suspected pharyngoesophageal dysphagia as exhibited by intermittent wet vocal quality at baseline, intermittent throat clearing s/p ingestion of liquids, as
well as coughing with ingestion with solids in the presence of a newly diagnosed esophageal diverticulum and acute medullary CVA.
Pt also presents with clinical signs of a mild cognitive linguistic deficit as evidenced by his performance on the MOCA (score=25/30) and clinical observations - pt has a difficult time recalling recent events and even recounting some of his own
symptoms regarding his dysphagia over the past year.
Recommendations:
- Cautiously re-initiate PO diet of soft bite sized solids with thin liquids, meds as tolerated. Discontinue PO intake and make pt STRICT NPO if pt experiences any overt aspiration event or respiratory distress with PO intake.
- Aspiration precautions: HOB upright for all PO intake; close supervision; reduce distractions; encourage pt to eat slowly - take one bite at a time chew food thoroughly, alternate solids/liquids, and finish his bite before taking a new bite; if pt
is noted to have a wet vocal quality, encourage him to cough hard and then swallow.
- Video fluoroscopic swallow study on Sunday for more information about pt's swallowing function.
- Consider GI consult re: new dx of esophageal diverticulum.
- BOW MACHINE OPERATOR to f/u with more recommendations following the completion of pt's VFSS on Sunday.
- BOW MACHINE OPERATOR to f/u re: tx for mild cognitive linguistic deficits.
[2024-07-26] MEDS: LOVENOX 40 MG SC (17:24)
[2024-07-26] MEDS: LIPITOR 40 MG PO (17:24)
[2024-07-26] MEDS: MOBIC 15 MG PO (21:07)
[2024-07-27 03:49] VITALS: BP 118/61
[2024-07-27 06:40] LABS: Hematocrit 38.2 % (39.0-52.0); Mean Corpuscular Hgb 32.2 pg (27.0-31.0); Mean Corpuscular Volume 94.6 fL (80.0-94.0); Mean Platelet Volume 9.2 fL (7.4-10.4); Platelet Count 145 10^3/uL (130-400); Red Blood Cell Count 4.04 10^6/uL (4.70-6.10); Red Cell Dist. Width 12.6 % (11.5-14.5); White Blood Cell Count 5.9 10^3/uL (4.8-10.8)
[2024-07-27 07:00] VITALS: BP 131/62
[2024-07-27 07:08] LABS: Blood Urea Nitrogen 19 mg/dl (9-20); Calcium 9.3 mg/dl (8.4-10.2); Carbon Dioxide 26 mmol/L (22-30); Chloride 106 mmol/L (98-107); Estimated Creatinine Clearance 117 ml/min; Glucose 91 mg/dl (70-99); Sodium 139 mmol/L (135-145); eGFR > 60.00
[2024-07-27] MEDS: LOW STRENGTH ASPIRIN 81 MG PO (07:51)
[2024-07-27] MEDS: PLAVIX 75 MG PO (07:51)
[2024-07-27] MEDS: VITAMIN B-12 1000 MCG PO (07:53)
--- NOTE | 2024-07-27 08:49 | W.PN.HOSP.TC ---
Today's Communication/Plan
-
Antiplatelets and statins. Plan for VSE
Assessment / Plan
Assessment / Plan
Physical exam:
General: No Apparent Distress
HEENT: Normocephalic, Atraumatic and Moist Mucous Membranes
Respiratory: Clear to Auscultation; Negative Wheezes, Rales or Rhonchi
Cardiac: Regular Rhythm and S1/S2
GI: Soft, Nontender and Nondistended
Musculoskeletal: No Clubbing, No Cyanosis and No Edema
Neuro: Awake, Alert and Oriented, generalized weakness, RUE and RLE distal weakness, decreased vibration and proprioception in same areas. Decreased reflexes.
Psych: Calm, inattention, cognitive deficits
A/P:
Acute embolic CVA R PICA:
-Aspirin and Plavix and statin
-Neurology consult appreciated
-interrogation PPM no arrhythmia
-PT/OT consulted
-Hemoglobin A1c 5.4
-LDL 89
-Reviewed echocardiogram
-Reviewed MRI of the brain
-CTA of the head and neck reviewed.
-Discussed with at bedside
#Dysphagia
-Speech therapy recommended IDDSI level 6 for now and plan for video swallow tomorrow
-There is also evidence of possible esophageal diverticulum so outpatient GI eval (in the setting of acute stroke would not recommend GI interventions unless absolutely required)
#Hypothyroidism
-Levothyroxine continued
# Libby malformation
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
#Chronic encephalopathy
#Vitamin B12 insufficiency. Vitamin B12 278. Started supplementation b12
#DVT prophylaxis
-Lovenox
# CODE STATUS DNR
Anticipated Discharge: 24 - 48 hours
Subjective/Interval History
-
Date of Service: July 27, 2024
Patient does not voice any new complaints. Continues to have intermittent dysphagia. Afebrile
Objective Data
-
Labs:
Laboratory Results
07/27/24
06:19
WBC 5.9
Hgb 13.0
Hct 38.2 L
Plt Count 145
Sodium 139
Potassium 4.0
Chloride 106
Carbon Dioxide 26
BUN 19
Creatinine 0.6 L
Glucose 91
Calcium 9.3
Vital Signs:
Vital Signs
Temp Pulse Resp BP Pulse Ox
98.2 F 51 18 131/62 97
07/27/24 07:00 07/27/24 07:00 07/27/24 07:00 07/27/24 07:00 07/27/24 07:00
I&O
07/26/24 07/27/24 07/28/24
06:59 06:59 06:59
Intake Total 100 / 100 240 / 240
Balance 100 / 100 240 / 240
[2024-07-27 11:00] VITALS: BP 144/64
[2024-07-27 15:00] VITALS: BP 157/67
[2024-07-27] MEDS: LIPITOR 40 MG PO (17:13)
[2024-07-27] MEDS: LOVENOX 40 MG SC (17:13)
[2024-07-27 19:49] VITALS: BP 156/78
[2024-07-27 23:35] VITALS: BP 155/79
[2024-07-28 03:30] VITALS: BP 157/90
[2024-07-28] MEDS: SYNTHROID 175 MCG PO (06:06)
[2024-07-28 08:05] VITALS: BP 124/66
[2024-07-28] MEDS: VITAMIN B-12 1000 MCG PO (08:21)
[2024-07-28] MEDS: PLAVIX 75 MG PO (08:21)
[2024-07-28] MEDS: LOW STRENGTH ASPIRIN 81 MG PO (08:21)
[2024-07-28] MEDS: FLUSH (NSS) 1 FLUSH IV (08:26)
--- NOTE | 2024-07-28 09:46 | W.PN.HOSP.TC ---
Addendum entered and electronically signed by Anusha Holden MD 07/28/24 15:34:
total DC time 40 min
Original Note:
Today's Communication/Plan
-
see A/P
Assessment / Plan
Assessment / Plan
A/P:
# Acute embolic CVA R PICA:
Aspirin, Plavix and statin
Neurology input appreciated
interrogation PPM: no arrhythmia
PT/OT recc HH vs outpt therapy
Hemoglobin A1c 5.4
LDL 89
Reviewed echocardiogram
Reviewed MRI of the brain
CTA of the head and neck reviewed.
# Dysphagia
Speech therapy recommended IDDSI level 6 for now
video swallow 07/28: recc to cont IDDS level 6 and mildly thickened liquid
There is also evidence of possible esophageal diverticulum so recc outpatient GI eval (in the setting of acute stroke would not recommend GI interventions unless absolutely required)
# Hypothyroidism
Levothyroxine continued
# Libby malformation
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
# Chronic encephalopathy
# Vitamin B12 insufficiency.
Vitamin B12 278. Started supplementation b12
DVT prophylaxis: Lovenox
CODE STATUS: DNR
DW on the phone
Anticipated Discharge: Today
Subjective/Interval History
-
Date of Service: July 28, 2024
Objective Data
-
Vital Signs:
Vital Signs
Temp Pulse Resp BP Pulse Ox
36.6 C 51 18 124/66 100
07/28/24 08:05 07/28/24 08:05 07/28/24 08:05 07/28/24 08:05 07/28/24 08:05
I&O
07/27/24 07/28/24 07/29/24
06:59 06:59 06:59
Intake Total 240 / 240 840 / 840
Balance 240 / 240 840 / 840
Review of Systems
-
All other systems: Reviewed and negative
Physical Exam
-
General: Well Developed, Well Nourished, No Apparent Distress, Comfortable and Conversant; Negative Respiratory Distress
HEENT: Normocephalic, Atraumatic, Nose Appears Normal and Ears Appear Normal; Negative Oxygen
Respiratory: Clear to Auscultation and Non Labored Respirations; Negative Accessory Resp Muscle Use
Cardiac: Regular Rhythm and S1/S2
GI: Soft, Nontender, Nondistended and Normal Bowel Sounds
Skin: Warm and Dry
Neuro: Awake, Alert and Oriented
Psych: Calm and Intact Judgement/Insight
Data Reviewed
-
MRI: Report Reviewed by me
Labs: Labs Reviewed by me
--- NOTE | 2024-07-28 11:34 | CARDSERVLU ---
Echocardiogram with [facility] completed after protocol screening completed. Allergies verified.
Patent IV site: ____RAC_
IV site flushed with 0.9% NaCl pre and post administration.
Diluted bolus method utilized to enhance visualization of ventricular cabrera.
Total volume given: __5__ mL
Patient tolerated all procedures well without complications.
[2024-07-28 11:35] VITALS: BP 158/82
--- NOTE | 2024-07-28 12:08 | CM ---
Addendum entered by BITA Melton 07/28/24 12:56:
Messaged attending to request script for Outpatient therapy. RN aware.
Addendum entered by BITA Melton 07/28/24 12:45:
Placed a call to patient's at the request of attending. She confirmed that patient will go to the outpatient rehab on site at as he has been there before and they are familiar with him. She had no other questions.
Original Note:
Met with patient as he is medically cleared for discharge. Patient stated that his is coming to pick him up and transport him home. He has a swallow eval @ 12. Patient expressed that he feels ready for d/c. Reviewed IMM. He signed form and it
is now on chart. Patient stated that he is going to f/u outpatient at the ambulatory center for PT. He had no other questions or concerns.
Plan: Case management will continue to follow and assist with discharge planning. Home with . F/U outpatient rehab.
--- NOTE | 2024-07-28 12:24 | PTOTSP ---
Dysphagia Evaluation
Mild oral stage, moderate pharyngeal dysphagia and known esophageal dysphagia. At risk for top down and bottom up aspiration.
+ Silent aspiration of thin liquids via cup with and without a chin tuck
+Silent aspiration of retrograde flow from esophageal diverticulum during thin liquid cup trials
+ Deep penetration of thin liquids via straw with ineffective cued cough
Given patient's respiratory status is currently without signs of complications, consider diet below.
Recommendations:
1. IDDSI Level 6 Soft, IDDSI Level 2 Mildly Thick Liquids
2. Medications: 1 at a time with thickened liquids
3. Strategies: upright to 90 degrees, small single sips/bites, slow rate, multiple swallows, intermittent cough/reswallow, remain upright at least 30 minutes after PO intake, oral care after meals and 3-5x day
4. Dysphagia tx for instruction in compensations, pharyngeal exercises, and EMST as appropriate (outpatient level)
5. GI consult given esophageal diverticulum
--- NOTE | 2024-07-28 14:38 | W.DCSUMMARY ---
Discharge Summary
Discharge Data
Date of Admission: 07/25/24
Date of Discharge: 07/28/24
-
Pending Results: No
Hospital Course
Principal Diagnosis:
Acute embolic stroke in medulla and right cerebellar hemisphere (right Posterior Inferior Cerebellar Artery Stroke)�
Vitamin B12 insufficiency.
Dysphagia
Chronic Diagnoses:�
Hypothyroidism on Levothyroxine
Libby malformation
Consultations:�
Neurology
Procedures:�
None
Clinical course:�
This is a 74-year-old male, with past medical history as stated above, who presented with outpatient finding of acute stroke in the medulla and right cerebellar hemisphere.
Problem 1:
Acute embolic stroke in medulla and right cerebellar hemisphere (right Posterior Inferior Cerebellar Artery Stroke).
He can continue with dual antiplatelet therapy aspirin and Plavix for 21 days total, followed by aspirin after that.
He was started with Lipitor 40 mg daily which he can continue going forward. His LDL was at 89.
His pacemaker was interrogated, no arrhythmia was noted.
He was cleared by PT OT to follow-up with outpatient therapy.
As part of the stroke workup, hemoglobin A1c was checked, which was within normal limit at 5.4%.
His echo showed mildly reduced ejection fraction at 46%
Problem 2:
Dysphagia.
The patient can continue with soft and bite-size diet with mildly thickened liquids per speech eval.
He can follow-up with GI outpatient for possible esophageal diverticulum.
Problem 3:
Vitamin B12 insufficiency.
His Vitamin B12 level was noted to be at 278.
He can continue with B12 supplementation going forward.
As for the rest of his medical problems, they were stable during his hospital stay.
Discharge Plan
-
Patient Disposition: Home with Home Care
Discharge Diagnosis/Procedures: Acute stroke in Right medulla and right cerebellar hemisphere
Condition: Fair
Diet: Other diet
Additional Diets: soft and bite size food, mildly thickened liquid
Activity: As tolerated
Driving Restrictions: Not until seen by your Dr
Activity Restrictions/Additional Instructions:
Follow up with GI doctor outpatient for possible esophageal diverticulum causing silent aspiration
Referrals:
Camilo Nunez Jr., DO [Family Provider] - in less than 1 week
Additional Discharge Medication Instructions: Continue to take Aspirin and Plavix for 20 days, then aspirin after that.
Prescriptions:
New
atorvastatin 40 mg Tablet
40 mg PO QPM Qty: 30 0RF
aspirin 81 mg Tablet,Chewable
81 mg PO DAILY Qty: 30 0RF
clopidogrel 75 mg Tablet
75 mg PO DAILY Qty: 20 0RF
cyanocobalamin (vitamin B-12) [Vitamin B-12] 1,000 mcg Tablet
1,000 mcg PO DAILY Qty: 30 0RF
Continued
levothyroxine [Synthroid] 175 mcg Tablet
175 mcg PO MOTUWETHFRSA
Immune C
1 tab PO DAILY
Quietum Plus
1 tab PO DAILY
Discontinued
meloxicam 15 mg Tablet
15 mg PO HS
Discharge Orders:
Discharge Patient (As Directed); Ordered 07/28/24
Ordered By: Anusha Holden
Discharge Date and Time
Discharge Date/Time: 07/28/24 14:05
Print Language: EQUATORIAL GUINEAN
[2024-07-28 21:25] LABS: Albumin 4.01 g/dL (3.75-5.01); Alpha 1 Globulin 0.24 g/dL (0.19-0.46); Alpha 2 Globulin 0.75 g/dL (0.48-1.05); SPEP IFE Reflex Not Done; Total Protein-Electrophoresis 6.7 g/dL (6.3-8.2)
== END 2024-07-28 14:05 | disposition home health service (06) | DRG 64 ==
LOC: 4 EAST ACU 16:20
PROVIDERS: Emergency Medicine; Physician Assistant Medical; Registered Nurse; ADMITTING PHYSICIAN Hospitalist; ATTENDING PHYSICIAN Internal Medicine; CONSULT PHYSICIAN Psychiatry & Neurology Neurology; EMERGENCY PHYSICIAN Emergency Medicine; FAMILY PHYSICIAN Family Medicine
PROC: 4B02XSZ Measurement of Cardiac Pacemaker, External Approach (ICD-10-PCS; 2024-07-25)
DX: I63.441 Cerebral infarction due to embolism of right cerebellar artery (principal); G93.5 Compression of brain; M47.12 Other spondylosis with myelopathy, cervical region; G93.40 Encephalopathy, unspecified; R26.9 Unspecified abnormalities of gait and mobility; E03.9 Hypothyroidism, unspecified; R13.10 Dysphagia, unspecified; E55.9 Vitamin D deficiency, unspecified; L80 Vitiligo; I65.21 Occlusion and stenosis of right carotid artery; R73.02 Impaired glucose tolerance (oral); G60.9 Hereditary and idiopathic neuropathy, unspecified; G71.039 Limb girdle muscular dystrophy, unspecified; I73.9 Peripheral vascular disease, unspecified; M48.02 Spinal stenosis, cervical region; E78.5 Hyperlipidemia, unspecified; M21.371 Foot drop, right foot; I45.9 Conduction disorder, unspecified; Z66 Do not resuscitate; Z88.0 Allergy status to penicillin; Z79.890 Hormone replacement therapy; Z95.0 Presence of cardiac pacemaker; Z98.41 Cataract extraction status, right eye
CPT/HCPCS: 93308; 70496; 70498; 74230; 80048; 80053; 80061; 82550; 82607; 82746; 83036; 84155; 84165; 84425; 85025; 85027; 85610; 85730; 92523; 92610; 92611; 93005; 93288; 93321; 93325; 97116; 97163; 97167; 97530; 97535; 99285; Q9950; Q9967

== ENCOUNTER → 2024-08-19 11:09 | Outpatient (REF) | payer OTHER, SELFPAY | LOC: RAD 11:09 | PROVIDERS: ATTENDING PHYSICIAN Family Medicine | DX: I63.9 Cerebral infarction, unspecified (principal); I77.9 Disorder of arteries and arterioles, unspecified | CPT/HCPCS: 93880 ==

== ENCOUNTER 2024-08-27 15:14 | Outpatient (RCR) | payer OTHER, SELFPAY | END 2024-08-27 23:59 | disposition home or self-care (01) | LOC: RPT 15:14 | PROVIDERS: ATTENDING PHYSICIAN Family Medicine | DX: R26.89 Other abnormalities of gait and mobility (principal); Z73.6 Limitation of activities due to disability | CPT/HCPCS: 97110; 97112; 97116; 97162; 97167; 97530; 97535; 97537 ==

== ENCOUNTER → 2024-09-09 12:16 | Outpatient (REF) | payer OTHER, SELFPAY | LOC: DHSLP 12:16 | PROVIDERS: ATTENDING PHYSICIAN Internal Medicine Critical Care Medicine; FAMILY PHYSICIAN Family Medicine | DX: G47.33 Obstructive sleep apnea (adult) (pediatric) (principal) | CPT/HCPCS: 95800 ==

== ENCOUNTER 2024-09-17 13:21 | Outpatient (RCR) | payer OTHER, SELFPAY | END 2024-09-17 23:59 | disposition home or self-care (01) | LOC: RPT 13:21 | PROVIDERS: ATTENDING PHYSICIAN Family Medicine | DX: R26.89 Other abnormalities of gait and mobility (principal); Z73.6 Limitation of activities due to disability; R26.2 Difficulty in walking, not elsewhere classified; I69.998 Other sequelae following unspecified cerebrovascular disease | CPT/HCPCS: 97110; 97112; 97530; 97535; 97537 ==

== ENCOUNTER 2024-10-24 13:33 | Outpatient (RCR) | payer OTHER, SELFPAY | END 2024-10-24 23:59 | disposition home or self-care (01) | LOC: RPT 13:33 | PROVIDERS: ATTENDING PHYSICIAN Family Medicine | DX: R26.89 Other abnormalities of gait and mobility (principal); Z73.6 Limitation of activities due to disability; R26.2 Difficulty in walking, not elsewhere classified | CPT/HCPCS: 97110; 97112; 97116; 97530; 97535; 97537 ==

== ENCOUNTER → 2024-11-19 09:55 | Outpatient (REF) | payer OTHER, SELFPAY | LOC: RST 09:55 | PROVIDERS: ATTENDING PHYSICIAN Internal Medicine Gastroenterology; FAMILY PHYSICIAN Family Medicine | DX: R13.10 Dysphagia, unspecified (principal) | CPT/HCPCS: 74230; 92611 ==

== ENCOUNTER 2024-11-27 09:26 | Outpatient (RCR) | payer OTHER, SELFPAY | END 2024-11-27 23:59 | disposition home or self-care (01) | LOC: RPT 09:26 | PROVIDERS: ATTENDING PHYSICIAN Family Medicine | DX: R26.89 Other abnormalities of gait and mobility (principal); Z73.6 Limitation of activities due to disability; R26.2 Difficulty in walking, not elsewhere classified | CPT/HCPCS: 97110; 97112; 97140; 97530; 97535; 97537 ==

== ENCOUNTER 2024-12-26 12:51 | Outpatient (RCR) | payer OTHER, SELFPAY | END 2024-12-26 23:59 | disposition home or self-care (01) | LOC: RST 12:51 | PROVIDERS: ATTENDING PHYSICIAN Family Medicine | DX: R49.0 Dysphonia (principal); R26.89 Other abnormalities of gait and mobility (principal); R26.2 Difficulty in walking, not elsewhere classified; R13.12 Dysphagia, oropharyngeal phase; Z73.6 Limitation of activities due to disability; I69.398 Other sequelae of cerebral infarction | CPT/HCPCS: 92526; 92610; 97110; 97112; 97530; 97535; 97537 ==

== ENCOUNTER 2025-01-10 12:42 | Inpatient (IN) | payer OTHER, SELFPAY ==
[2025-01-10 11:16] VITALS: BP 150/69
--- NOTE | 2025-01-10 11:21 | ED.GENMED ---
History of Present Illness
General
Chief Complaint: Fall
Time Seen by Provider: 01/10/25 11:21
History of Present Illness
History of Present Illness:
FOCUSED PAST MEDICAL HISTORY
- The patient has a history of Ijgkogt-Qoceb-Vykoa and hypothyroidism, CVA 2024
REVIEW OF OLD RECORDS
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
Note:
CHIEF COMPLAINT(S)
Pain in the left hip following a fall.
HISTORY OF PRESENT ILLNESS
The patient is a 75-year-old male who presented to the emergency department after tripping and falling at home. The patient reports no loss of consciousness at the time of the fall and no incidents of syncope today. The patient experiences pain
primarily in the left hip and was unable to bear weight on the left leg following the fall. The patient describes a concern for a possible fracture, based on the way the leg is being held. The patient has no pain in the abdomen or chest and did not
strike his head during the fall.
PAST MEDICAL AND SURIGICAL HISTORY
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
CHRONIC MEDICAL CONDITIONS SIGNIFICANTLY AFFECTING CARE
The patient has Revjpqj-Aptgd-Ijonx disease, which limits his mobility and requires the use of leg braces.
SOCIAL HISTORY
The patient is currently taking the following medications: baby aspirin and atorvastatin (Lipitor) for unknown indications, and Synthroid (Levothyroxine).
ALLERGIES
The patient is allergic to shellfish.
REVIEW OF SYSTEMS
- Musculoskeletal: Pain in the left hip, inability to bear weight on the left leg.
- Neurological: Patient has a history of Nnahlrm-Mmjrg-Htext disease.
- Integumentary (Skin): No reported numbness or tingling.
PHYSICAL EXAM
General: Alert, appears uncomfortable when he attempts to move the left lower extremity
Skin: Warm, dry.
Head: Normocephalic, atraumatic.
Neck: Supple, trachea midline.
Eye Ears, Nose, Mouth and Throat: Oral mucosa moist.
Cardiovascular: Normal peripheral perfusion, No edema. Strong left DP pulse
Respiratory: Respirations are non-labored.
Gastrointestinal: Abdomen nondistended.
Back: Normal range of motion, Normal alignment.
Musculoskeletal: Difficulty bearing weight on the left leg due to pain, markedly decreased active range of motion of the flexion at the left hip, the left lower extremity is held externally rotated and slightly shortened, there is tenderness
diffusely to palpation of the left hip, no significant tenderness to pelvic squeeze.
Neurological: Alert and oriented to person, place, time, and situation, No focal neurological deficit observed.
Psychiatric: Cooperative, appropriate mood & affect.
PROBLEM LIST
- Acute: Suspected fracture of the left hip secondary to a fall.
- Chronic: Qdgpjvq-Lwivj-Yhjyl disease.
PLAN
- Obtain x-rays of the left hip to evaluate for possible fracture.
- Initiate intravenous access for potential interventions.
- Provide pain management as requested by the patient.
- Conduct blood work for further assessment.
DIFFERENTIAL DIAGNOSIS
The Differential Diagnosis includes, in no particular order and is not limited to:
- Hip fracture
- Contusion to the hip
- Muscle strain
- Dislocation of the hip
- Osteoarthritis exacerbation
- Neuropathic pain secondary to Rxyiuty-Iijbd-Tjrws disease
- Deep vein thrombosis
- Bursitis
- Tendonitis
- Soft tissue injury
RADIOLOGY
- X-ray personally reviewed and shows left intertrochanteric fracture
LABS
- CBC and chemistries unremarkable
UPDATE
-SUMMARY OF ENCOUNTER
The patient, a 75-year-old male with a history of Fbwstny-Zyrkx-Agkcs disease, was seen in the emergency department following a fall that resulted in left hip pain and inability to bear weight on the left leg. Upon examination and my independent
review of the x-rays, the findings indicated an intertrochanteric fracture of the left hip. Management in the emergency department included obtaining x-rays to confirm the presence of a fracture and providing pain management, which the patient
reported helped reduce the pain slightly. Given the nature of the fracture, standard care involves admission to the hospital for potential surgical intervention. The orthopedics and hospitalist teams were notified for admission and further
evaluation. Basic blood work conducted was reported to be within normal limits.
DISPOSITION
Admit
ASSESSMENT
The patient has an intertrochanteric fracture of the left hip, requiring surgical evaluation and hospital admission.
MANAGEMENT OF THE PATIENTS CARE WAS DISCUSSED WITH
Discusions about patient management were made with the hospitalist and orthopedic surgeon for admission and evaluation.
PLAN
The plan involves admission to the hospital, where the patient will be evaluated by the orthopedic team. Surgery is anticipated to be required, typically involving the placement of hardware to stabilize the fracture, although specifics will be
determined by the orthopedic team after reviewing the patients images.
INDEPENDENT REVIEW OF LABS AND INTERPRETATION OF TESTS
My independent review of the x-rays indicates an intertrochanteric fracture of the left hip.
MEDICAL DECISION MAKING
- Number and Complexity of Problems Addressed: Chronic conditions affecting care include Kjsvdqf-Nzrma-Enutk disease. The differential diagnosis list includes hip fracture, contusion to the hip, muscle strain, dislocation of the hip, osteoarthritis
exacerbation, neuropathic pain secondary to Wveyzgm-Cwdgb-Pudwc disease, deep vein thrombosis, bursitis, tendonitis, and soft tissue injury.
- Data:
Category 1: Basic blood work reviewed, which was found to be within normal limits. My independent interpretation of the x-ray confirms an intertrochanteric fracture of the left hip.
Category 3: Management of patients care was discussed with the hospitalist and orthopaedic surgeon for admission and further evaluation.
- Risk:
Consideration of surgery for the hip fracture, which involves inherent surgical risks. Admission was deemed necessary for close monitoring and to expedite care.
DIAGNOSIS
Intertrochanteric fracture of left hip (ICD-10: S72.142A).
I notified hospitalist and Ortho on-call, Dr. Knutson.
Past History
Past History
ED Past Medical History: Arrthythmia and Hypothyroidism
ED Past Surgical History: Cardiac and Tonsilectomy
Social History
Tobacco: Non-smoker
Alcohol: None
Drug: None
Personal:
Living: with family
Phy Exam
Physical Exam
Physical Exam:
See HPI
Course
Orders/Labs/Results
Orders:
Orders
01/10/25 11:22
HYDROmorphone [Dilaudid] 1 mg IV NOW STA
Ondansetron Injectable [Zofran] 4 mg IV NOW STA
CR Femur - Left Min 2 Vw Urgent
Comment:
Reason For Exam: fall pain
CR Hip - LT w/wo Pel 2-3 Vw* Urgent
Comment:
Reason For Exam: fall pain
Include a pelvis x-ray?: Yes
01/10/25 11:25
Basic Metabolic Panel Urgent
Complete Blood Count/With Diff Urgent
TSH Reflex To Free T4 Urgent
Abnormal Lab Results
01/10/25
11:25
RBC 4.22 L 10^6/uL
(4.70-6.10)
Absolute Neuts (auto) 6.6 H 10^3/uL
(1.4-6.5)
Absolute Lymphs (auto) 0.6 L 10^3/uL
(1.2-3.4)
Neutrophils % 84.5 H %
(42.2-75.2)
Lymphocytes % 7.3 L %
(20.5-51.1)
Glucose 122 H mg/dl
(70-99)
01/10/25 11:25
01/10/25 11:25
Vital Signs
Initial and Last Documented VS:
Initial Vital Signs
Temp Pulse Resp BP Pulse Ox
37.1 C 61 16 150/69 98
01/10/25 11:16 01/10/25 11:16 01/10/25 11:16 01/10/25 11:16 01/10/25 11:16
Last Documented Vital Signs
Temp Pulse Resp BP Pulse Ox
37.1 C 57 22 150/69 98
01/10/25 11:16 01/10/25 11:30 01/10/25 11:30 01/10/25 11:22 01/10/25 11:33
*Pulse Oximetry
Patient hypoxic: no
*Critical Care Note
Total Time (30-74mins, 75-104mins- exclusive of procedures): Not Applicable
ED Attending Note
-
Portions of this chart may have been created with voice recognition software.� Occasional wrong word or��sound alike� substitutions may have occurred due to the inherent limitations of voice recognition software.
Discharge Plan
Departure
Patient Disposition: Admit
Date of Disposition: 01/10/25
Time of Disposition: 12:09
Presentation/result/management discussed w/ accepting MD/DO: Hospitalist
Patient with high blood pressure during this ER visit?: Yes
Discharge Problem:
Intertrochanteric fracture of left hip
Prescriptions:
No Action
levothyroxine [Synthroid] 175 mcg Tablet
175 mcg PO MOTUWETHFRSA
Immune C
1 tab PO DAILY
Quietum Plus
1 tab PO DAILY
atorvastatin 40 mg Tablet
40 mg PO QPM Qty: 30 0RF
aspirin 81 mg Tablet,Chewable
81 mg PO DAILY Qty: 30 0RF
clopidogrel 75 mg Tablet
75 mg PO DAILY Qty: 20 0RF
cyanocobalamin (vitamin B-12) [Vitamin B-12] 1,000 mcg Tablet
1,000 mcg PO DAILY Qty: 30 0RF
Interventions
Interventions:
*Risk Screen - Suicide Last Done: 01/10/25 11:16
*General Assessment Last Done: 01/10/25 11:16
*Neglect/Abuse Screening Last Done: 01/10/25 11:16
*ED- Fall Risk Assessment Last Done: 01/10/25 11:33
*ED COVID-19 Vaccine History Last Done: 01/10/25 11:33
ED-Musculoskeletal Assessment Last Done: 01/10/25 11:33
ED- Neurological Assessment Last Done: 01/10/25 11:33
ED-Skin Assessment Last Done: 01/10/25 11:33
Discharge Date and Time
Print Language: RWANDAN
[2025-01-10 11:22] VITALS: BP 150/69
[2025-01-10] MEDS: ZOFRAN 4 MG IV (11:28)
[2025-01-10] MEDS: DILAUDID 1 MG IV (11:28)
[2025-01-10 11:32] VITALS: BMI 24.8
[2025-01-10 11:41] LABS: Hematocrit 39.3 % (39.0-52.0); Hemoglobin 13.1 g/dL (13.0-18.0); Mean Corp Hgb Conc. 33.3 g/dL (33.0-37.0); Mean Corpuscular Volume 93.1 fL (80.0-94.0); Nucleated Red Blood Cells % 0 % (-); Platelet Count 185 10^3/uL (130-400); Red Cell Dist. Width 13.1 % (11.5-14.5)
[2025-01-10 11:57] LABS: Blood Urea Nitrogen 19 mg/dl (9-20); Calcium 9.6 mg/dl (8.4-10.2); Carbon Dioxide 30 mmol/L (22-30); Chloride 105 mmol/L (98-107); Estimated Creatinine Clearance 78 ml/min; Glucose 122 mg/dl (70-99); Potassium 4.5 mmol/L (3.5-5.1); Sodium 140 mmol/L (135-145); eGFR > 60.00
--- NOTE | 2025-01-10 12:16 | HPS.HSE ---
Addendum entered and electronically signed by Noé Shaw MD 01/10/25 14:43:
Seen and examined and discussed with nurse practitioner in detail I am in agreement with plan and management mentioned by nurse practitioner.
Awake, alert and oriented x 3, looks lethargic accompanied by , daughter and son-in-law at the bedside, patient brought to the hospital after a mechanical fall troponin H elbow metal bar on the ground and fell and immediately experienced pain in
the left hip with a workup showed commuted fracture.
Current looks comfortable other than mild pain and discomfort denies any other discomfort denies any dizziness or any syncope present post the event.
Vital signs reviewed
Physical exam:
General: Awake, alert and oriented x3, not in distress and holds appropriate conversation.
HEENT: No active discharge, ecchymosis or bruising, moist lips, tongue and mucous membrane.
Eyes: No discharge or red conjunctiva, no nystagmus, pupils are reactive and equal
Neck:Supple, no JVD no bruit no goiter.
Respiratory: Normal AP contour and diameter, normal chest wall movement, normal respiratory effort, no respiratory distress,
Lungs: Good air entry bilaterally, no wheezing or rhonchi, no rales or crackles
Heart: S1, S2 regular, normal rate, no added sound.
Gastrointestinal: Positive bowel sounds, soft, nontender, no guarding or rigidity or organomegaly
Musculoskeletal: Limitation of movement and tenderness in the left hip area, no chest wall abnormality or tenderness. All other joints and extremities have good range of motion, no muscle tenderness or any joint swelling or tenderness.
Extremities: No pitting edema, good peripheral pulses, good range of motion
Workup including labs, imaging, EKG and archive reviewed.
Assessment and plan:
Left hip fracture:
Mechanical fall,
Discussed with Ortho planning to OR tomorrow
Pain management
Medically stable to go to the OR and he is mild to moderate perioperative risk complication, therefore proceed with the procedure if deemed necessary.
Need close monitoring of the vital sign and fluid status perioperatively.
History of stroke: Was in June of this year, with no residual effect other than family thinking some cognitive change.
Hold aspirin
Close monitoring of vital sign and neurological status perioperatively
Cognitive decline which is noticed by the family otherwise he is awake, alert and oriented family when assesses and explained to them and during acute event may not be accurate therefore 1 this acute issue happen can be evaluated inpatient versus
outpatient preferably.
All discussed with the patient and the family, all the question answered and patient condition discussed with them
Discussed with Ortho
Discussed with nurse practitioner
Original Note:
Family Physician
-
Family Physician: Camilo Nunez Jr.
Chief Complaint
-
fall
History of Present Illness
75-year-old male with PMH for CVA, Hypothyroidism presented s/p fall at home. he tripped on something and fell on his left hip. he was not able to get up from the floor. The patient reports no loss of consciousness at the time of the fall and no
incidents of syncope today. denied hitting head on the floor. denied fever, chills, cough,congestion. denied chest pain, sob. denied abdominal pain,n,v,d. denied dysuria or hematuria.
left intetroch fracture. admitting for further management
Medical History
Past Medical History
Past Medical History: Reports Other
Additional Past Medical History:
Hypothyroidism, Graves' disease, chickenpox, CVA, pacemaker
Past Surgical History: Reports Other
Additional Past Surgical History:
Pacemaker placement, right cataract surgery
Social History
Tobacco: Non-smoker
Alcohol: Occasional
Drug: None
Personal:
Living: With Family
Family History
Family History: Not pertinent
Allergies / Home Medications
Allergies reflects when Allergies were last updated in [employer].
Home Medications with original date entered in [employer]
Allergy/Medication List:
Allergies
Allergy/AdvReac Type Severity Reaction Status Date / Time
Penicillins Allergy Unknown Verified 01/10/25 11:24
Home Medications
ascorbic acid (vitamin C) 500 mg tablet (Vitamin C) 500 mg PO DAILY ##0 05/22/22
levothyroxine 175 mcg tablet (Synthroid) 175 mcg PO MOTUWETHFRSA 05/22/22
Quietum Plus 1 tab PO DAILY 07/25/24
aspirin 81 mg chewable tablet 81 mg PO DAILY #30 tabs 07/28/24
atorvastatin 40 mg tablet 40 mg PO QPM #30 tabs 07/28/24
ginkgo biloba leaf extract 120 mg-choline bitartrate 110 mg tablet (appssavvy Memory Support) 1 tab PO DAILY 01/10/25
meloxicam 15 mg tablet 15 mg PO HS 01/10/25
Review of Systems
-
Constitutional: Reports No Symptoms
EENT: Reports No Symptoms
Respiratory: Reports No Symptoms
Cardiac: Reports No Symptoms
Abdomen/GI: Reports No Symptoms
: Reports No Symptoms
Musculoskeletal: Reports Other (left hip pain)
Skin: Reports No Symptoms
Neurological: Reports No Symptoms
Endocrine: Reports No Symptoms
Hematologic/Lymphatic: Reports No Symptoms
Psych: Reports No Symptoms
Physical Exam
Vital Signs
Vital Signs
Temp Pulse Resp BP Pulse Ox
98.8 F 57 22 150/69 98
01/10/25 11:16 01/10/25 11:30 01/10/25 11:30 01/10/25 11:22 01/10/25 11:33
Physical Exam
General: Well Developed, Well Nourished and No Apparent Distress
HEENT: NormoCephalic, Moist mucous membranes and Atraumatic
Respiratory: Clear
Cardiac: S1/S2 and Regular Rhythm; No Murmur or Rub
GI: Soft, Non Tender, Non Distended and Normal Bowel Sounds; No Organomegaly
Rectal: Deferred by Provider
Musculoskeletal: No Clubbing, No Cyanosis and Other (the left lower extremity is held externally rotated and slightly shortened, there is tenderness diffusely to palpation of the left hip, )
Skin: No Rash
Neuro: AO x 3 and Nonfocal/grossly intact
Psych: Calm
Laboratory Results
-
01/10/25 11:25
01/10/25 11:25
Data Reviewed
-
Diagnostic Radiology: Report Reviewed by me
Lab Data: Labs Reviewed by me
Impression/Plan
-
# Left intertrochanteric fracture
- Orthopedic consulted
- Tylenol, oxycodone, Dilaudid as needed for pain
- Hip x-ray with impression There is a comminuted, mildly displaced and impacted left intertrochanteric femoral fracture.
- Femur x-ray with impression Redemonstration of the proximal femoral fracture without evidence of distal femoral fracture.
# History of CVA
- Aspirin and statin continued
# Hypothyroidism
-Levothyroxine continued
# Libby malformation
DVT prophylaxis: scd
CODE STATUS: DNR
[2025-01-10 13:30] VITALS: BP 153/68
--- NOTE | 2025-01-10 13:41 | CON.ORTHO ---
Consultation
-
Date/Time Consultation Requested: 01/10/2025 @ 12:53
Date/Time Consultation Performed: 01/10/2025 @ 13:00
Requesting Provider: Dr. Yariel Ma DO
Performing Provider: Devon Knight PA-C for Dr. Raf Knutson
Reason for Consultation: Left Hip Fracture
Consultation - Orthopedics
History
Orthopedic Surgery Note
CC: Left Hip Pain s/p Mechanical Fall 01/10/2025 @ ~11AM
HPI: The patient is a 74-year-old male with a PMH significant for CMT, CVA, and Hypothyroidism who presented to [facility] after sustaining a mechanical fall at home. He reports that his left foot got caught, causing a trip and fall landing onto his left
hip. He denies any loss of consciousness or any head trauma. He was not able to get up from the floor. He endorses pain localized to the left hip/groin and inability to weight-bear on his left lower extremity. He was transported to the Emergency
Department for further evaluation, where x-rays revealed a left intertrochanteric hip fracture. At this time, he reports that his pain is relatively controlled at rest, however endorses increased pain with any attempted range of motion. He is on a
baby aspirin daily. He denies any further anticoagulation use. At baseline, he ambulates with assistance of a cane and walker. He lives in a two-story home. He reports that CMT affects his right > left extremities. 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 Orthopedic surgery was consulted for further management.
PMH/PSH: CMT, CVA 2024, Hypothyroidism, Pacemaker placement.
Medications: Reviewed.
Family History: Family history was reviewed. Noncontributory.
Social history: Nonsmoker, no illicit drugs.
Exam
General appearance: Pleasant. No acute distress.
Head: Normocephalic/atraumatic
Nose: No lesions or discharge.
Skin: No obvious rashes or open wounds.
Lungs: No audible wheezing, no cough or sputum production
Musculoskeletal:
LLE:
Directed examination of the left lower extremity reveals leg shortened and externally rotated. (+) TTP about the left hip/lateral thigh. Compartments are soft and compressible. (+) Logroll. Calf is soft and nontender to palpation. Able to
actively plantarflex and dorsiflex left ankle in comparison to the contralateral side, however reduced with inability to perform ankle dorsiflexion or great toe extension against resistance. RLE dropfoot present. Capillary refill is <2 seconds.
Sensation grossly intact to light touch distally.
Radiographic Findings:
CR Hip - LEFT w/wo Pel 2-3 Vw was obtained at [facility] on 01/10/2025 and was made available for my review today. Findings: There is a comminuted and mildly displaced intertrochanteric fracture with mild impaction. Impression: There is a
comminuted, mildly displaced and impacted left intertrochanteric femoral fracture.
CR Femur - LEFT Min 2 Vw was obtained at [facility] on 01/10/2025 and was made available for my review today. Findings: Bones - Redemonstration of the intertrochanteric femoral fracture. There is no evidence of distal femoral fracture.
Degenerative changes of the left knee. Chondrocalcinosis. Soft tissue - No soft tissue abnormality is seen. Vascular calcifications. Impression: Redemonstration of the proximal femoral fracture without evidence of distal femoral fracture.
Assessment: 74-year-old male with a LEFT comminuted mildly displaced intertrochanteric proximal femur fracture.
Plan: Unfortunately, the patient has sustained a left hip fracture. Treatment options were discussed with the patient and his family today at length, and after thorough discussion, shared decision was to proceed with operative fixation. The risks,
benefits, potential complications and expected post-operative course were reviewed. We will plan for a LEFT hip gamma nail under the direction of Dr. Zenia Guerra, 01/11/2025, as long as cleared to proceed. Surgical and blood consents were obtained
and placed on the patient's chart. Ancef on-call to OR. Patient will remain NPO pMN. Remain NWB to LLE until post-op. He is to remain on bedrest for now. Continue with pain medications as needed. Type and screen requested. Left hip marked as
the correct surgical extremity. Hemoglobin today 13.1. Orthopedic surgery will continue to follow along.
Allergies / Home Medications
Allergy/AdvReac Type Severity Reaction Status Date / Time
Penicillins Allergy Unknown Verified 01/10/25 11:24
�Medication �Instructions �Recorded
ascorbic acid (vitamin C) 500 mg 500 mg PO DAILY ##0 05/22/22
tablet (Vitamin C)
levothyroxine 175 mcg tablet 175 mcg PO MOTUWETHFRSA 05/22/22
(Synthroid)
Quietum Plus 1 tab PO DAILY 07/25/24
aspirin 81 mg chewable tablet 81 mg PO DAILY #30 tabs 07/28/24
atorvastatin 40 mg tablet 40 mg PO QPM #30 tabs 07/28/24
ginkgo biloba leaf extract 120 1 tab PO DAILY 01/10/25
mg-choline bitartrate 110 mg
tablet ([facility])
meloxicam 15 mg tablet 15 mg PO HS 01/10/25
Vital Signs / Lab Results
Temp Pulse Resp BP Pulse Ox
98.8 F 61 19 150/69 95
01/10/25 11:16 01/10/25 13:15 01/10/25 13:15 01/10/25 11:22 01/10/25 12:06
01/10/25 11:25
01/10/25 11:25
[2025-01-10] MEDS: DILAUDID 0.5 MG IV (13:55)
--- NOTE | 2025-01-10 14:09 | PTCARENOTE ---
Pt admitted into 2102 for left hip fx. VSS, pt rates pain /, medicated per JUN. Per speech recommendation, diet changed to IDDSI 6 with mildly thick liquids. Pt and family oriented to room, questions answered, call yoon within reach.
--- NOTE | 2025-01-10 14:30 | CM ---
information manager reviewed patient's chart and patient was admitted with possible left hip fracture, and surgery tomorrow. Patient lives with spouse in 2 story home with 6 steps to enter from the front and 2-3 steps through the garage. Patient is
independent with adl's and use a cane with ambulation. Patient drives.
PCP: Camilo Nunez Jr
Pharmacy: [facility] in [place].
Plan; Patient for possible orthopedic surgery and then skilled placement, options reviewed and patient has selected [facility], referral sent to [facility].
[2025-01-10] MEDS: SYNTHROID PO (14:49)
[2025-01-10 15:15] VITALS: BP 143/65
[2025-01-10] MEDS: ROXICODONE 5 MG PO (16:20)
[2025-01-10] MEDS: TYLENOL 650 MG PO ×3 (16:20→23:30)
[2025-01-10] MEDS: LIPITOR 40 MG PO (17:52)
[2025-01-10] MEDS: SENOKOT PO (20:31)
[2025-01-10] MEDS: COLACE 100 MG PO (20:31)
[2025-01-10 23:04] VITALS: BP 131/67
[2025-01-11] VITALS (14 sets, daily range): BP systolic 95–136; BP diastolic 48–65; PULSE 61–68; O2SAT 96–98
[2025-01-11] MEDS: TYLENOL PO ×3 (03:01→10:57)
[2025-01-11] MEDS: COLACE PO (09:04)
[2025-01-11] MEDS: SENOKOT PO (09:04)
--- NOTE | 2025-01-11 09:52 | W.IMMPOSTOP ---
Surgical Immed Post Op Note
-
Primary Surgeon: Zenia
Head Rigger: Devon Knight PA-C
Pre-op Diagnosis: Left hip intertrochanteric fracture
Post-op Diagnosis: Same
Procedure Performed: Left hip Gamma nail fixation
Anesthesia Type: General
Specimen / Cultures: None
Estimated Blood Loss: 20cc
Complications: None
Operative Findings: Dictated
Plan:
- WBAT
- ASA 325 for 30 days daily if there are no contraindications
- PT/ OT
--- NOTE | 2025-01-11 10:56 | W.PN.HOSP.TC ---
Today's Communication/Plan
-
Postop pain control
Physical therapy evaluation
Aspirin for DVT prophylaxis
Assessment / Plan
Assessment / Plan
# Left intertrochanteric fracture
- Orthopedic consulted
- Pain control. Bowel regimen.
- Hip x-ray with impression There is a comminuted, mildly displaced and impacted left intertrochanteric femoral fracture.
- Femur x-ray with impression Redemonstration of the proximal femoral fracture without evidence of distal femoral fracture.
- Status post left hip gamma nail fixation by Dr. Knutson. Weightbearing as tolerated. Aspirin 325 mg for DVT prophylaxis. Postop antibiotics per surgery.
- PT/OT.
# History of CVA
- Aspirin and statin continued
# History of dysphagia
Continue with modified diet IDDS6
# Hypothyroidism
-Levothyroxine continued
#Heart block status post pacemaker implantation
# Libby 1 malformation
#Vitamin B12 deficiency
#Probably heavy due to polyneuropathy?
DVT prophylaxis: scd/asa
CODE STATUS: DNR
Discussed with orthopedic team
Anticipated Discharge: > 48 hours
Subjective/Interval History
-
Date of Service: January 11, 2025
Patient was seen postop in PACU
On monitor. Awake on oxygen.
Objective Data
-
Vital Signs:
Vital Signs
Temp Pulse Resp BP Pulse Ox
97.8 F 57 15 112/52 97
01/11/25 09:55 01/11/25 10:44 01/11/25 10:44 01/11/25 10:45 01/11/25 10:44
I&O
01/10/25 01/11/25 01/12/25
06:59 06:59 06:59
Intake Total 610 / 610
Output Total 480 / 480
Balance 130 / 130
Physical Exam
-
General: Well Developed, Well Nourished and No Apparent Distress
HEENT: Normocephalic, Atraumatic, Nose Appears Normal, Ears Appear Normal and Oxygen
Respiratory: Clear to Auscultation and Non Labored Respirations; Negative Accessory Resp Muscle Use
Cardiac: Regular Rhythm, S1/S2 and Other (Paced rhythm on telemetry.)
GI: Soft, Nontender, Nondistended and Normal Bowel Sounds
Skin: Warm
Neuro: Awake
Psych: Calm
[2025-01-11] MEDS: ROXICODONE 10 MG PO (12:15)
[2025-01-11] MEDS: TYLENOL 650 MG PO ×2 (15:41→20:03)
[2025-01-11] MEDS: ANCEF 5 IV ×2 (15:41→23:54)
[2025-01-11] MEDS: LIPITOR 40 MG PO (17:00)
[2025-01-11] MEDS: ASPIRIN 325 MG PO (17:00)
[2025-01-11] MEDS: SENOKOT 17.2 MG PO (20:03)
[2025-01-11] MEDS: COLACE 100 MG PO (20:03)
[2025-01-12] VITALS (7 sets, daily range): BP systolic 82–143; BP diastolic 51–74; PULSE 70; O2SAT 96
[2025-01-12] MEDS: TYLENOL PO ×2 (00:52→04:59)
[2025-01-12] MEDS: SYNTHROID 175 MCG PO (05:26)
[2025-01-12] MEDS: ROXICODONE 10 MG PO (05:47)
[2025-01-12 06:37] LABS: Hematocrit 29.3 % (39.0-52.0); Hemoglobin 10.0 g/dL (13.0-18.0); Mean Corp Hgb Conc. 34.1 g/dL (33.0-37.0); Mean Corpuscular Volume 95.8 fL (80.0-94.0); Nucleated Red Blood Cells % 0 % (-); Platelet Count 147 10^3/uL (130-400); Red Cell Dist. Width 13.1 % (11.5-14.5)
[2025-01-12 06:46] LABS: Blood Urea Nitrogen 26 mg/dl (9-20); Calcium 9.0 mg/dl (8.4-10.2); Carbon Dioxide 29 mmol/L (22-30); Chloride 103 mmol/L (98-107); Estimated Creatinine Clearance 88 ml/min; Glucose 122 mg/dl (70-99); Potassium 4.8 mmol/L (3.5-5.1); Sodium 135 mmol/L (135-145); eGFR > 60.00
[2025-01-12] MEDS: ASPIRIN 325 MG PO (08:16)
[2025-01-12] MEDS: COLACE 100 MG PO ×2 (08:16→19:32)
[2025-01-12] MEDS: TYLENOL 650 MG PO ×4 (08:17→19:32)
[2025-01-12] MEDS: SENOKOT 17.2 MG PO ×2 (08:17→19:32)
--- NOTE | 2025-01-12 09:12 | W.PN.ORTHO ---
Today's Communication / Plan
-
Appreciate the primary team, continue treatment
Dispo per CM, ? SNF ?
Continue WBAT LLE on device, with B/L MAFO
PT/OT
ASA 325mg daily x 4 weeks for DVT ppx
Dressings to remain 7-10 days
Pain control
Heriberto out 2 weeks post-op (if SNF)
If heriberto out at SNF outpatient Ortho follow-up in 4 weeks
Assessment
.
Distal Motor Intact: Yes
Dressing:
Clean, dry and intact. Primaseal in place left thigh x 3
Assessment:
POD#1 Left gamma nail
Overall doing/feeling well
Calf soft, nontender
Plan
.
Surgery / Date: Left Gamma Nail Jan 22 ([facility])
DVT Prophylaxis: Aspirin
Activity:
Out of bed. WBAT LLE on device
PT/OT
Discharge Plan: SNF (per CM) and Other
Subjective
.
.:
Patient resting comfortably. no significant pain overnight.
Vital Signs and Labs
.
Vital Signs and Labs:
Lab Results
01/12/25 05:25
01/12/25 05:25
Temp Pulse Resp BP Pulse Ox
98.0 F 62 16 116/51 96
01/12/25 07:10 01/12/25 07:10 01/12/25 07:10 01/12/25 07:10 01/12/25 07:10
--- NOTE | 2025-01-12 11:38 | CM ---
Addendum entered by Jeffrey Caceres 01/12/25 15:42:
An auth initiated from [employer] for SNF level of care at [facility], spoke to [employer] licensing representative Arley, pending ref #: [id number]. Requested pt's clinical faxed to [phone] for a review.
Awaiting for an auth.
D/C plan: [facility] when an auth available, probably tomorrow 01/13/25.
Addendum entered by Jeffrey Caceres 01/12/25 14:42:
CM spoke to [facility] community director and she confirmed that they do have a bed available for pt tomorrow and pot is accepted for admission tomorrow.
Accepting physician Mary Anne Kurtz
Both pt and her spouse are aware, expressed their agreement. IMM reviewed, placed on chart, pt has a copy.
CM initiated an auth from [employer], and was told that their system is not available right now and asked to call later.
CM will re-initiate calling [employer] to obtain an auth for SNF level of acre at [facility]
Addendum entered by Jeffrey Caceres 01/12/25 14:24:
According to pt is medically stable to be discharged today.
CM left two messaged to [facility] community director to confirm bed availability and accepting physician to initiate an auth from [employer].
Original Note:
CM following re: discharge planning.
Reviewed pt's chart, met with pt.
Pt is POD#1 s/p Left Gamma Nail. Continue supportive care.
PT and OT evaluations noted - SNF level of care recommended. A referral to [facility] noted, pt is accepted based on bed availability on the day of discharge.
D/C plan: [facility] based on bed availability on the day of discharge.
CM will follow to assist pt with discharge to [facility].
--- NOTE | 2025-01-12 14:12 | W.PN.HOSP.TC ---
Today's Communication/Plan
-
Medically stable for discharge to rehab
Assessment / Plan
Assessment / Plan
# Left intertrochanteric fracture
- Hip x-ray with impression There is a comminuted, mildly displaced and impacted left intertrochanteric femoral fracture.
- Femur x-ray with impression Redemonstration of the proximal femoral fracture without evidence of distal femoral fracture.
- Status post left hip gamma nail fixation by Dr. Knutson 01/11. Weightbearing as tolerated. Aspirin 325 mg for DVT prophylaxis.
- PT/OT-recommends rehab.
- Postop H&H drop noted-possibly acute blood loss anemia. Follow for now.
# History of CVA
- Aspirin and statin continued
# History of dysphagia
Continue with modified diet IDDS6
# Hypothyroidism
-Levothyroxine continued
#Heart block status post pacemaker implantation
# Libby 1 malformation
#Vitamin B12 deficiency
#Probably heavy due to polyneuropathy?
Medically stable for discharge to rehab
DVT prophylaxis: scd/asa
CODE STATUS: DNR
Discussed with management today
Anticipated Discharge: Today
Subjective/Interval History
-
Date of Service: January 12, 2025
Pain from the fracture repair site tolerable. No nausea or vomiting.
Denies shortness of breath, chest pain.
No dizziness.
Objective Data
-
Labs:
Laboratory Results
01/12/25
05:25
WBC 11.7 H
Hgb 10.0 L D
Hct 29.3 L
Plt Count 147 D
Sodium 135
Potassium 4.8
Chloride 103
Carbon Dioxide 29
BUN 26 H
Creatinine 0.8
Glucose 122 H
Calcium 9.0
Vital Signs:
Vital Signs
Temp Pulse Resp BP Pulse Ox
98.0 F 62 16 116/51 96
01/12/25 07:10 01/12/25 07:10 01/12/25 07:10 01/12/25 07:10 01/12/25 07:10
I&O
01/11/25 01/12/25 01/13/25
06:59 06:59 06:59
Intake Total 610 / 610 580 / 580 360 / 360
Output Total 480 / 480
Balance 130 / 130 580 / 580 360 / 360
Physical Exam
-
General: Comfortable
Respiratory: Clear to Auscultation and Non Labored Respirations; Negative Accessory Resp Muscle Use
Cardiac: Regular Rhythm and S1/S2; Negative Tachycardic
GI: Soft
Neuro: AO x 3
Data Reviewed
-
Labs: Labs Reviewed by me
[2025-01-12] MEDS: ROXICODONE 5 MG PO (15:33)
[2025-01-12] MEDS: LIPITOR 40 MG PO (17:37)
[2025-01-12] MEDS: MILK OF MAGNESIA 30 ML PO (17:39)
[2025-01-12 21:30] LABS: Glucose - Point of Care 129 mg/dl (70-99)
[2025-01-13] MEDS: TYLENOL 650 MG PO ×3 (00:21→09:08)
[2025-01-13] MEDS: ROXICODONE 10 MG PO (03:40)
[2025-01-13] MEDS: SYNTHROID 175 MCG PO (05:26)
[2025-01-13] MEDS: DILAUDID 0.5 MG IV (05:28)
[2025-01-13 06:27] LABS: Glucose - Point of Care 110 mg/dl (70-99)
[2025-01-13 07:15] VITALS: BP 117/59
[2025-01-13 07:44] LABS: Hematocrit 26.6 % (39.0-52.0); Hemoglobin 9.0 g/dL (13.0-18.0); Mean Corp Hgb Conc. 33.8 g/dL (33.0-37.0); Mean Corpuscular Volume 94.0 fL (80.0-94.0); Platelet Count 131 10^3/uL (130-400); Red Cell Dist. Width 13.2 % (11.5-14.5)
--- NOTE | 2025-01-13 08:11 | W.PN.UPDATE ---
Update Note
Progress Note Update
Mr. Olmstead is POD 2 following his left hip cephalomedullary nail for intertrochanteric femur fracture performed by Dr. Knutson. He is resting comfortably in bed this morning. He is sleepy, but does answer questions. He denies any pain at present.
Directed exam of the left lower extremity reveals surgical dressing with slight strikethrough of blood proximally, otherwise clean, dry and intact. No significant tenderness throughout the hip. Thigh soft and compressible. Calf soft and nontender.
Patient able to wiggle toes, and plantar flex ankle. Faint dorsiflexion of ankle. Neurovascularly intact distally.
Hgb 9.0 this AM.
74 yo M POD2 left hip cephalomedullary nail for intertrochanteric femur fracture under the direction of Dr. Knutson
--Appreciate the assistance of primary team, continue treatment.
--WBAT to LLE with assistive device. B/L MAFO. We appreciate the assistance of PT/OT.
--Pain control prn. Ice and elevation for edema control.
--Recommend ASA 325mg daily x 4 weeks for DVT ppx.
--Maintain surgical dressing until 7-10 days post-op. Staple removal at 2 weeks post-op. If heriberto out at SNF, outpatient Ortho follow-up in 4 weeks.
--Case management for dc planning.
--Patient is stable post-operatively from an orthopedic standpoint. Orthopedics will sign off for now. Please reach out with any additional orthopedic questions or concerns.
[2025-01-13] MEDS: COLACE PO (09:08)
[2025-01-13] MEDS: SENOKOT PO (09:08)
[2025-01-13] MEDS: ASPIRIN 325 MG PO (09:08)
--- NOTE | 2025-01-13 10:29 | W.DCSUMMARY ---
Discharge Summary
Discharge Data
Date of Admission: 01/10/25
Date of Discharge: 01/13/25
-
Pending Results: No
Hospital Course
Primary diagnosis:
Left intertrochanteric fracture-Status post left hip gamma nail fixation by Dr. Knutson 01/11.
Secondary diagnosis:
History of stroke
History of dysphagia
Hypothyroidism
Status post permanent pacemaker implantation
Hospital course:
The patient is a 74-year-old male with a PMH significant for CMT, CVA, and Hypothyroidism who presented to [facility] after sustaining a mechanical fall at home. Unfortunately sustained a left intertrochanteric fracture which was fixed by a gamma nail
without any immediate complication. He had a drop in H&H with a suspected second acute blood loss. His hemoglobin dropped from 13.1-9.0. No obvious external bleeding noted. He was hemodynamically stable. Platelets were adequate. Creatinine was
0.8. He was seen by PT OT who recommended rehab. He was put on aspirin 325 mg for 4 weeks for DVT prophylaxis. No changes were made to his home medication regimen other than to resume his baby aspirin after he is done with prophylactic dose of
regular strength aspirin.
Today patient alert and oriented. Voices no specific complaints. Pain adequately controlled. Using minimal oxycodone. Afebrile. Pulse 95, blood pressure 117/59. Oxygenation well on room air. Chest was clear. Hemoglobin 9. Platelets 131.
Medically stable for discharge to rehab today.
Maintain surgical dressing until 7-10 days post-op. Staple removal at 2 weeks post-op. If heriberto out at SNF, outpatient Ortho follow-up in 4 weeks.
Consultants on board:
Orthopedics-Raf Hinojosa
Discharge Plan
-
Patient Disposition: Jail/SNF
Discharge Diagnosis/Procedures: Left intertrochanteric fracture-Status post left hip gamma nail fixation by Dr. Knutson 01/11
Diet: Low Cholesterol
Additional Diets: IDDSI 6 diet
Activity: As tolerated
Driving Restrictions: Not until seen by your
Bathing Restrictions: None
Other Services: PT and OT
Referrals:
Camilo Nunez Jr., [Family Provider, Internal Medicine]
Raf Knutson MD [Active, Orthopedics] - in two weeks
Referral Note: If heriberto can come off in 2 weeks at rehab then follow-up with Dr. Knutson in 4 weeks
Prescriptions:
New
aspirin 325 mg Tablet
325 mg PO DAILY Qty: 1 0RF
Rx Instructions:
4 weeks for DVT prophylaxis
docusate sodium 100 mg Capsule
100 mg PO BID Qty: 1 0RF
sennosides [Roberta-kristofer] 8.6 mg Tablet
17.2 mg PO BID Qty: 1 0RF
oxycodone 5 mg Tablet
5 mg PO Q4HPRN PRN (Reason: mild pain) Qty: 12 0RF
acetaminophen 325 mg Tablet
650 mg PO Q4HWA Qty: 1 0RF
Continued
levothyroxine [Synthroid] 175 mcg Tablet
175 mcg PO MOTUWETHFRSA
ascorbic acid (vitamin C) [Vitamin C] 500 mg Tablet
500 mg PO DAILY Qty: 0
Quietum Plus
1 tab PO DAILY
atorvastatin 40 mg Tablet
40 mg PO QPM Qty: 30 0RF
meloxicam 15 mg Tablet
15 mg PO HS
Brainstrong Memory Support 120 mg- 110 mg Tablet
1 tab PO DAILY
Held
aspirin 81 mg Tablet,Chewable
81 mg PO DAILY Qty: 30 0RF
Hold Instructions: Resume on 02/12/25. Resume once done with ASA 325mg dose
Discharge Orders:
Discharge Patient (As Directed); Ordered 01/13/25
Ordered By: Mik Rivas
Discharge Date and Time
Print Language: SALVADOREAN
--- NOTE | 2025-01-13 10:35 | CM ---
Addendum entered by Jeffrey Caceres 01/13/25 10:49:
Ambulance transport scheduled for 1:30 p.m. Both pt, his spouse and [facility] admissions rn are aware.
Original Note:
CM following re: discharge planning.
Reviewed pt's chart, met with pt.
Discharge order noted. Both pt and his spouse are aware, expressed their agreement. IMM reviewed yesterday. Pt's spouse stated she will visit the pt at [facility] today and she will bring cloths.
CM received confirmation fax from [employer], pt is approved for SNF level of care at [facility] for 7 initial days from today 01/13/25 till 01/19/25 with NRD and LCD 01/19/25. Auth: [id number]. For additional days fax: [phone].
Auth information forwarded to [facility] admissions rn and she confirmed that pt is accepted for admission today.
[facility] to arrange ambulance transport, BLS. PMNC completed and left with .
[facility] nursing report: [phone]
Discharge instructions fax: [phone]
D/C plan: [facility].
[2025-01-13 12:24] LABS: Glucose - Point of Care 156 mg/dl (70-99)
[2025-01-13 13:39] VITALS: BP 127/62
== END 2025-01-13 13:39 | DRG 480 ==
LOC: 2 SOUTH 12:42
PROVIDERS: Hospitalist; Student in an Organized Health Care Education/Training Program; ADMITTING PHYSICIAN Internal Medicine; ATTENDING PHYSICIAN Internal Medicine; CONSULT PHYSICIAN Orthopaedic Surgery; EMERGENCY PHYSICIAN Emergency Medicine; FAMILY PHYSICIAN Family Medicine
PROC: 0QH734Z Insertion of Internal Fixation Device into Left Upper Femur, Percutaneous Approach (ICD-10-PCS; 2025-01-11)
DX: S72.142A Displaced intertrochanteric fracture of left femur, initial encounter for closed fracture (principal); G93.5 Compression of brain; D62 Acute posthemorrhagic anemia; W01.0XXA Fall on same level from slipping, tripping and stumbling without subsequent striking against object, initial encounter; E03.9 Hypothyroidism, unspecified; G60.0 Hereditary motor and sensory neuropathy; Z86.73 Personal history of transient ischemic attack (TIA), and cerebral infarction without residual deficits; Z66 Do not resuscitate; M21.371 Foot drop, right foot; Z79.82 Long term (current) use of aspirin; Z79.890 Hormone replacement therapy; Z95.0 Presence of cardiac pacemaker; E53.8 Deficiency of other specified B group vitamins; I45.9 Conduction disorder, unspecified
CPT/HCPCS: 73502; 73552; 76000; 80048; 82962; 84443; 85025; 85027; 86850; 86900; 86901; 96374; 96375; 97116; 97163; 97167; 97530; 97535; 99284; C1713

== ENCOUNTER → 2025-01-15 10:40 | Outpatient (REF) | payer OTHER, SELFPAY ==
[2025-01-15 11:50] LABS: Blood Urea Nitrogen 18 mg/dl (9-20); Calcium 8.9 mg/dl (8.4-10.2); Carbon Dioxide 29 mmol/L (22-30); Chloride 101 mmol/L (98-107); Glucose 101 mg/dl (70-99); Potassium 4.1 mmol/L (3.5-5.1); Sodium 133 mmol/L (135-145); eGFR > 60.00
[2025-01-15 11:55] LABS: Hematocrit 25.7 % (39.0-52.0); Hemoglobin 8.7 g/dL (13.0-18.0); Mean Corp Hgb Conc. 33.9 g/dL (33.0-37.0); Mean Corpuscular Volume 95.5 fL (80.0-94.0); Nucleated Red Blood Cells % 0 % (-); Platelet Count 157 10^3/uL (130-400); Red Cell Dist. Width 13.1 % (11.5-14.5)
== END ==
LOC: OLABP 10:40
PROVIDERS: ATTENDING PHYSICIAN Family Medicine
DX: S72.142D Displaced intertrochanteric fracture of left femur, subsequent encounter for closed fracture with routine healing (principal); E03.9 Hypothyroidism, unspecified; E05.00 Thyrotoxicosis with diffuse goiter without thyrotoxic crisis or storm; D62 Acute posthemorrhagic anemia; G93.5 Compression of brain; I63.9 Cerebral infarction, unspecified; R13.0 Aphagia; Z95.0 Presence of cardiac pacemaker
CPT/HCPCS: 36415; 80048; 85025

== ENCOUNTER → 2025-01-20 11:57 | Outpatient (REF) | payer OTHER, SELFPAY ==
[2025-01-20 12:23] LABS: Hematocrit 27.1 % (39.0-52.0); Hemoglobin 9.1 g/dL (13.0-18.0); Mean Corp Hgb Conc. 33.6 g/dL (33.0-37.0); Mean Corpuscular Volume 95.1 fL (80.0-94.0); Nucleated Red Blood Cells % 0 % (-); Platelet Count 229 10^3/uL (130-400); Red Cell Dist. Width 13.2 % (11.5-14.5)
[2025-01-20 12:29] LABS: Blood Urea Nitrogen 19 mg/dl (9-20); Calcium 8.7 mg/dl (8.4-10.2); Carbon Dioxide 28 mmol/L (22-30); Chloride 101 mmol/L (98-107); Glucose 98 mg/dl (70-99); Potassium 4.2 mmol/L (3.5-5.1); Sodium 134 mmol/L (135-145); eGFR > 60.00
== END ==
LOC: OLABP 11:57
PROVIDERS: ATTENDING PHYSICIAN Family Medicine
DX: E03.9 Hypothyroidism, unspecified (principal); E05.00 Thyrotoxicosis with diffuse goiter without thyrotoxic crisis or storm; D62 Acute posthemorrhagic anemia; G93.5 Compression of brain; R13.10 Dysphagia, unspecified
CPT/HCPCS: 36415; 80048; 85025

== ENCOUNTER → 2025-01-26 11:05 | Outpatient (REF) | payer OTHER, SELFPAY ==
[2025-01-26 11:26] LABS: Hematocrit 29.5 % (39.0-52.0); Hemoglobin 9.7 g/dL (13.0-18.0); Mean Corp Hgb Conc. 32.9 g/dL (33.0-37.0); Mean Corpuscular Volume 96.1 fL (80.0-94.0); Platelet Count 301 10^3/uL (130-400); Red Cell Dist. Width 13.8 % (11.5-14.5)
[2025-01-26 11:31] LABS: Blood Urea Nitrogen 13 mg/dl (9-20); Calcium 8.9 mg/dl (8.4-10.2); Carbon Dioxide 28 mmol/L (22-30); Chloride 103 mmol/L (98-107); Glucose 93 mg/dl (70-99); Potassium 3.7 mmol/L (3.5-5.1); Sodium 135 mmol/L (135-145); eGFR > 60.00
== END ==
LOC: OLABP 11:05
PROVIDERS: ATTENDING PHYSICIAN Family Medicine
DX: S72.142D Displaced intertrochanteric fracture of left femur, subsequent encounter for closed fracture with routine healing (principal); D62 Acute posthemorrhagic anemia; G93.5 Compression of brain; E03.9 Hypothyroidism, unspecified; E05.00 Thyrotoxicosis with diffuse goiter without thyrotoxic crisis or storm; I63.9 Cerebral infarction, unspecified; R13.10 Dysphagia, unspecified; Z95.0 Presence of cardiac pacemaker
CPT/HCPCS: 36415; 80048; 85027

== ENCOUNTER → 2025-03-03 14:08 | Outpatient (REF) | payer OTHER, SELFPAY | LOC: RAD 14:08 | PROVIDERS: ATTENDING PHYSICIAN Surgery Vascular Surgery; FAMILY PHYSICIAN Family Medicine | DX: I65.23 Occlusion and stenosis of bilateral carotid arteries (principal) | CPT/HCPCS: 93880 ==